=== PATIENT | female | born 1970 | race Caucasian/White ===

== ENCOUNTER 2024-09-28 10:35 | Outpatient (CLI) | payer MEDICARE, OTHER, SELFPAY ==
[2024-09-28 11:00] LABS: Hematocrit 41.3 % (35.0-49.0); Hemoglobin 13.5 g/dL (12.0-15.0); Immature Granulocyte Percent A 0.6 % (0.0-0.0); Lymphocytes Absolute Auto 2.21 K/mm3 (1.10-4.50); Mean Corpuscular HGB Conc 32.7 g/dL (32-36); Mean Corpuscular Hemoglobin 31.3 pg (27.0-31.0); Mean Corpuscular Volume 95.8 fL (78.0-102.0); Nucleated Red Blood Cells Absolute Auto 0.00 K/mm3 (0.00-0.00); Nucleated Red Blood Cells Perc 0.0 % (0-0.0); Platelet Count Result 352 K/mm3 (150-420); Red Blood Count 4.31 M/mm3 (4.20-5.40); White Blood Count 5.4 K/mm3 (4.8-10.8)
--- OUTSIDE RECORDS SUMMARY | 2024-09-28 11:15 | XMS_ITS | Encounter Summary ---
Author Organization [facility] Address [address] [place] [address] Care Team Providers Care Tumbler Operator Name Role Phone Rajeev Warren MD Primary Care Provider [phone] Joseph Wright MD Unavailable [phone] Pauly Perales MD Primary Care Provider [phone] Unavailable Unavaila ble Source Comments You are receiving this document because a patient has been referred to you or your facility after avisit at [facility]. The attached Continuity of Care Document (CCD) was sent in order to comply to federal meaningful use standards. The information has been automatically generated from our EHR ([employer]). If you require additional medical records beyond what is included in this CCD, please contactour Release of Information department at [facility] Reason for Visit * Reason Comments Medication Refill Encounter Details Date Type Department Care Team (Late st Contact Info) Description 10/20/2023 Refill ALLERGY & IMMUNOLOGY DEPARTMENT [address] [place] [address] [phone] Tracey Woo MD [address] [place] [address] Social History Tobacco Use Types Packs/Day Years Used Date Smoking Tobacco: Never Smokeless Tobacco: Never Alcohol Use Standard Drinks/Week Comments No 0 (1 standard drink = 0.6 oz pur e alcohol) Comments Unknown Sex and Gender Information Value Date Recorded Sex Assigned at Female 03/10/2021 5:30 PM PST Legal Sex Female 11:12 PM PDT Gender Identity Female 09/07/2020 4:05 PM PDT Sexual Orientation Not on file 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 Not on file Not on file Not on file documented as of this encounter Plan of Treatment Upcoming Encounters Date Type Department Care Team (Late st Contact Info) Description 10/07/2024 10:30 AM PDT Office Visit [facility]ERGY & IMMUNOLOGY DEPARTMENT [address] [place] [phone] Tracey Woo MD [address] [place] [address] ofv 1y f/u Allergic rhinitis, Shot pt 10/08/2024 8:00 AM PDT Office Visit [facility] [address] [place] [address] Ashkan Padron MD [address] [place] [address] 3 month follow up Sinus 10/11/2024 11:15 AM PDT Clinical Support ALLERGY & IMMUNOLOGY DEPARTMENT [address] [place] [address] Allergy Shot 01/06/2025 8:00 AM PST Office Visit [facility] INTERNAL MEDICINE DEPARTMENT [address] [place] [address] Pauly Perales MD [address] [place] [address] AWV documented as of this encounter Visit Diagnoses Not on filedocumented in this encounter Care Teams Tumbler Operator Relationship Specialty Start Date End Date Rajeev Warren MD [address] [facility] [address] [place] [address] PCP - General 08/28/12 12/31/23 Pauly Perales MD [address] [place] [address] PCP - General Internal Medicine 01/01/24 Joseph Wright MD [address] [place] [address] [phone] General Surgery 03/28/[address] [place] [address] Health Education 03/18/24 documented as of this encounter
--- OUTSIDE RECORDS SUMMARY | 2024-09-28 11:16 | XMS_ITS | Encounter Summary ---
Author Organization [facility] Address [address] [place] [address] Care Team Providers Care Driller Helper Name Role Phone Rajeev Warren MD Primary Care Provider [phone] Joseph Wright MD Unavailable [phone] Pauly Perales MD Primary Care Provider [phone] Unavailable Unavaila ble Source Comments You are receiving this document because a patient has been referred to you or your facility after avisit at [facility]. The attached Continuity of Care Document (CCD) was sent in order to comply to federal meaningful use standards. The information has been automatically generated from our EHR ([employer]). If you require additional medical records beyond what is included in this CCD, please contactour Release of Information department at [facility] Reason for Visit * Reason Comments Medication Refill Encounter Details Date Type Department Care Team (Late st Contact Info) Description 07/23/2023 Refill ALLERGY & IMMUNOLOGY DEPARTMENT [address] [place] [address] [phone] Tracey Woo MD [address] [place] [address] Moderate persistent asthma without complication Social History Tobacco Use Types Packs/Day Years Used Date Smoking Tobacco: Never Smokeless Tobacco: Never Alcohol Use Standard Drinks/Week Comments No 0 (1 standard drink = 0.6 oz pur e alcohol) Comments No Sex and Gender Information Value Date Recorded [...] PDT Office Visit ALLERGY & IMMUNOLOGY DEPARTMENT [address] [place] [address] Tracey Woo MD [address] [place] [address] ofv 1y f/u Allergic rhinitis, Shot pt 10/08/2024 8:00 AM PDT Office Visit [facility] [address] [address] Ashkan Padron MD [address] [place] [address] 3 month follow up Sinus 10/11/2024 11:15 AM PDT Clinical Support ALLERGY & IMMUNOLOGY DEPARTMENT [address] [place] [address] Allergy Shot 01/06/2025 8:00 AM PST Office Visit [facility] INTERNAL MEDICINE DEPARTMENT [address] [place] [address] Pauly Perales MD [address] [place] [address] AWV documented as of this encounter Visit Diagnoses Diagnosis Moderate persistent asthma without complication Unspecified asthma documented in this encounter Care Teams Driller Helper Relationship Specialty Start Date End Date Rajeev Warren MD [address] [facility] [address] [place] [address] PCP - General 08/28/12 12/31/23 Pauly Perales MD [address] [place] [address] PCP - General Internal Medicine 01/01/24 Joseph Wright MD [address] [place] [address] General Surgery 03/28/[address] [place] [address] Health Education 03/18/24 documented as of this encounter
--- OUTSIDE RECORDS SUMMARY | 2024-09-28 11:16 | XMS_ITS | Encounter Summary ---
Author Organization [facility] Address [address] [place] [address] Care Team Providers Care Battery Assembler Plastic Name Role Phone Rajeev Warren MD Primary Care Provider [phone] Joseph Wright MD Unavailable [phone] Pauly Perales MD Primary Care Provider [phone] Unavailable Unavaila ble Source Comments You are receiving this document because a patient has been referred to you or your facility after avisit at [facility]. The attached Continuity of Care Document (CCD) was sent in order to comply to federal meaningful use standards. The information has been automatically generated from our EHR (Prep[employer]). If you require additional medical records beyond what is included in this CCD, please contactour Release of Information department at [facility] Reason for Visit * Reason Comments Medication Refill Encounter Details Date Type Department Care Team (Late st Contact Info) Description 07/22/2023 Refill ALLERGY & IMMUNOLOGY DEPARTMENT [address] [place] [address] [phone] Tracey Woo MD [address] [place] [address] Moderate persistent asthma without complication [...] PDT Office Visit ALLERGY & IMMUNOLOGY DEPARTMENT [address] [place] [address] Tracey Woo MD [address] [place] [address] ofv 1y f/u Allergic rhinitis, Shot pt 10/08/2024 8:00 AM PDT Office Visit [facility] [address] [place] [address] Ashkan Padron MD [address] [place] [address] 3 month follow up Sinus 10/11/2024 11:15 AM PDT Clinical Support ALLERGY & IMMUNOLOGY DEPARTMENT [address] [place] [address] Allergy Shot 01/06/2025 8:00 AM PST Office Visit [facility] INTERNAL MEDICINE DEPARTMENT [address] [place] [address] Pauly Perales MD [address] [place] [address] AWV documented as of this encounter Visit Diagnoses Diagnosis Moderate persistent asthma without complication Unspecified asthma documented in this encounter Care Teams Battery Assembler Plastic Relationship Specialty Start Date End Date Rajeev Warren MD [address] [facility] [address] [place] [address] PCP - General 08/28/12 12/31/23 Pauly Perales MD [address] [place] [address] PCP - General Internal Medicine 01/01/24 Joseph Wright MD [address] [place] [address] General Surgery 03/28/[address] [place] [address] Health Education 03/18/24 documented as of this encounter
--- OUTSIDE RECORDS SUMMARY | 2024-09-28 11:16 | XMS_ITS | Encounter Summary ---
Author Organization [facility] Address [address] [place] [address] Care Team Providers Care Freelance Digital Project Manager Name Role Phone Rajeev Warren MD Primary Care Provider [phone] Joseph Wright MD Unavailable [phone] Pauly Perales MD Primary Care Provider [phone] Unavailable Unavaila ble Source Comments You are receiving this document because a patient has been referred to you or your facility after avisit at [facility]. The attached Continuity of Care Document (CCD) was sent in order to comply to federal meaningful use standards. The information has been automatically generated from our EHR ([email or web address]). If you require additional medical records beyond what is included in this CCD, please contactour Release of Information department at [facility] Reason for Visit * Reason Comments Medication Refill Encounter Details Date Type Department Care Team (Late st Contact Info) Description 07/21/2023 Refill ALLERGY & IMMUNOLOGY DEPARTMENT [address] [place] [address] [phone] Tracey Woo MD [address] [place] [address] Moderate persistent asthma without complication [...] PDT Office Visit ALLERGY & IMMUNOLOGY DEPARTMENT [address] [place] [address] Tracey Woo MD [address] [place] [address] ofv 1y f/u Allergic rhinitis, Shot pt 10/08/2024 8:00 AM PDT Office Visit [facility] [address] [place] [address] Ashkan Padron MD [address] [place] [address] 3 month follow up Sinus 10/11/2024 11:15 AM PDT Clinical Support ALLERGY & IMMUNOLOGY DEPARTMENT [address] [place] [address] Allergy Shot 01/06/2025 8:00 AM PST Office Visit [facility] INTERNAL MEDICINE DEPARTMENT [address] [place] [address] Pauly Perales MD [address] [place] [address] AWV documented as of this encounter Visit Diagnoses Diagnosis Moderate persistent asthma without complication Unspecified asthma documented in this encounter Care Teams Freelance Digital Project Manager Relationship Specialty Start Date End Date Rajeev Warren MD [address] [facility] [address] [place] [address] PCP - General 08/28/12 12/31/23 Pauly Perales MD [address] [place] [address] PCP - General Internal Medicine 01/01/24 Joseph Wright MD [address] [place] [address] General Surgery 03/28/[address] [place] [address] Health Education 03/18/24 documented as of this encounter
--- OUTSIDE RECORDS SUMMARY | 2024-09-28 11:16 | XMS_ITS | Encounter Summary ---
Author Organization [facility] Address [address] [place] [address] Care Team Providers Care Art Glass Setter Name Role Phone Rajeev Warren MD Primary Care Provider [phone] Encounter Details Date Type Department Care Team (Late st Contact Info) Description 01/29/2022 Donor Referral Kidney Transplant Department [address] [place] [address] Joselyn Gipson [address] [place] [address] Social History Tobacco Use Types Packs/Day Years Used Date Smoking Tobacco: Never Assessed Depression Risk (PHQ) Answer Date Recor ded Total Risk Score based on the patient's PHQ-9 if documented Not on file 01/29/2022 Total Risk Score based on th e patient's IP PHQ-2 if documented Not on file 01/29/2022 Total Risk Score based on the patient's PHQ-2 if documented Not on file 01/29/2022 Social Isolation Answer Date Recorded How often do you see or talk to people that you care about and feel close to? Not on file 01/29/2022 Comments Unknown Sex and Gender Information Value Date Recorded Sex Assigned at Not on file Legal Sex Female 10:57 AM PDT Gender Identity Not on file Sexual Orientation Not on file documented as of this encounter Plan of Treatment Not on file documented as of this encounter Visit Diagnoses Not on filedocumented in this encounter Care Teams Art Glass Setter Relationship Specialty Start Date End Date Rajeev Warren MD PCP - General 06/13/14 documented as of this encounter Additional Source Comments Request medical records from [facility] directly by faxing your request to . Please call for additional information and assistance.[facility]
--- OUTSIDE RECORDS SUMMARY | 2024-09-28 11:16 | XMS_ITS | Encounter Summary ---
Author Organization [facility] Address [address] [place] [address] Care Team Providers Care Floral Assistant Name Role Phone Rajeev Warren MD Primary Care Provider [phone] Joseph Wright MD Unavailable [phone] Pauly Perales MD Primary Care Provider [phone] Unavailable Unavaila ble Source Comments You are receiving this document because a patient has been referred to you or your facility after avisit at [facility]. The attached Continuity of Care Document (CCD) was sent in order to comply to federal meaningful use standards. The information has been automatically generated from our EHR ([employer]). If you require additional medical records beyond what is included in this CCD, please contactour Release of Information department at [facility] Reason for Visit * Reason Comments Medication Refill Encounter Details Date Type Department Care Team ([facility] st Contact Info) Description 06/02/2018 Refill [facility] INTERNAL MEDICINE DEPARTMENT [address] [place], [place] [phone] Rajeev Warren MD [address] [address] Social History Tobacco Use Types Packs/Day Years [...] PDT Office Visit ALLERGY & IMMUNOLOGY DEPARTMENT [address] [place] [address] Tracey Woo MD [address] [place] [address] ofv 1y f/u Allergic rhinitis, Shot pt 10/08/2024 8:00 AM PDT Office Visit [facility] [address] [place] [address] Ashkan Padron MD [address] [place] [address] 3 month follow up Sinus 10/11/2024 11:15 AM PDT Clinical Support ALLERGY & IMMUNOLOGY DEPARTMENT [address] [place] [address] Allergy Shot 01/06/2025 8:00 AM PST Office Visit [facility] INTERNAL MEDICINE DEPARTMENT [address] [place] [address] Pauly Perales MD [address] [place] [address] AWV documented as of this encounter Visit Diagnoses Not on filedocumented in this encounter Care Teams Floral Assistant Relationship Specialty Start Date End Date Rajeev Warren MD [address] [facility] [address] [place] [address] PCP - General 08/28/12 12/31/23 Pauly Perales MD [address] [place] [address] PCP - General Internal Medicine 01/01/24 Joseph Wright MD [address] [place] [address] [phone] General Surgery 03/28/[address] [place] [address] Health Education 03/18/24 documented as of this encounter
--- OUTSIDE RECORDS SUMMARY | 2024-09-28 11:16 | XMS_ITS | Encounter Summary ---
Author Organization [facility] Address [address] [place] [address] Phone Care Team Providers Care Carbider Name Role Phone Pauly Perales MD Primary Care Provider [phone] Encounter Details Date Type Department Care Team (Latest Contact Info) Description 12/09/2023 Lab Interfaced Orders LAB INTERFACED ORDERS [phone] Encounter for general adult medical examination without abnormal findings; Hypothyroidism, unspecified; Essential (primary) hypertension Social History Tobacco Use Types Packs/Day Years Used Date Smoking Tobacco: Never Smokeless Tobacco: Never Alcohol Use Standard Drinks/Week Comments No 0 (1 standard drink = 0.6 oz pur e alcohol) [facility] Utilities Answer Date Recorded In the past 12 months has th e electric, gas, oil, or water company threatened to shut off services in your home? No 03/26/2023 PRAPARE - Transportation Answer Date Re corded In the past 12 months, has l ack of transportation kept you from medical appointments or from getting medications? No 02/26 In the past 12 months, has l ack of transportation kept you from meetings, work, or from getting things needed for daily living? No 03/26/2023 Food Insecurity Answer Date Recorded In the last 12 months, did y ou ever eat less than you felt you should because there wasn't enough money for food? No Housing Stability Answer Date Recorded Are you worried that in the next 2 months, you may not have stable housing? No 03/26/2023 Intimate Partner Violence Answer Date R ecorded Do you feel physically and e motionally threatened by anyone in your life? No 03/26/2023 Comments No Sex and Gender Information Value Date Recorded Sex Assigned at Female 04/06/2018 11:07 AM PST Legal Sex Female 8:37 PM PDT Gender Identity Female 04/06/2018 11:07 AM PST Sexual Orientation Straight 03/26/2023 5: 44 PM PST documented as of this encounter Plan of Treatment Not on file documented as of this encounter Results * Thyroid Reflex Panel (12/11/2023 8:54 AM PDT) TSH Ultrasensitive 4.027 0.400 - 4.500 uIU/mL 12/11/2023 12:52 PM PDT [facility] Comment:Reflex testing not i ndicated Blood Venipuncture / Unknown 12/11/2023 8:54 AM PDT 12/11/2023 8:54 AM PDT us Pauly Perales MD LAB BLOOD ORDERABLES Final Res ult Performing Organization Address [facility] Co de Phone Number [facility] [address] [place] [address], * (ABNORMAL) Urinalysis with Microscopic (Reflex Culture If Indicated) (12/11/2023 8:54 AM PDT) Color Yellow Yellow, Dark Yellow, Colorless 12/11/2023 11:44 AM PDT [facility] Clarity Clear Clear 12/11/2023 11:44 AM PDT [facility] Urine Specific [place] 1.012 1.005 - 1.030 12/11/2023 11:44 AM PDT [facility] Urine pH 7.0 5.0 - 8.0 pH 12/11/2023 11:44 AM PDT [facility] Urine Protein Negative Negative, Trace mg/dL 12/11/2023 11:44 AM PDT [facility] Urine Glucose Negative Negative mg/dL 12/11/2023 11:44 AM PDT [facility] Urine Ketones Negative Negative mg/dL 12/11/2023 11:44 AM PDT [facility] Urine Bilirubin Negative Negative 11:44 AM PDT [facility] Urobilinogen 0.2 <=1.0 EU/dl 12/11/2023 11:44 AM PDT [facility] Urine Blood Negative Negative 12/11/2023 11:44 AM PDT [facility] Urine Leukocyte Esterase Negative Negative 12/11/2023 11:44 AM PDT [facility] Urine Nitrite Negative Negative 12/11/2023 11:44 AM PDT [facility] Urine RBC 1-2 <3 /hpf 12/11/2023 11:44 AM PDT [facility] Urine WBC 1-5 <6 /hpf 12/11/2023 11:44 AM PDT [facility] Urine Bacteria 2+(A) None Seen /hpf 12/11/2023 11:44 AM PDT [facility] Urine Squamous Epithelial 1+ (1-3/hpf)(A) None Seen /hpf 12/11/2023 11:44 AM PDT [facility] Hyaline Casts 0-3 <4 /lpf 12/11/2023 11:44 AM PDT [facility] Pathological Casts None Seen None Seen /lpf 12/11/2023 11:44 AM PDT [facility] Crystals None Seen None Seen /hpf 12/11/2023 11:44 AM PDT [facility] Sperm, UA None Seen None Seen, NOT PRESENT, Present /hpf 12/11/2023 11:44 AM PDT [facility] Yeast Like Cells None Seen None Seen, NOT PRESENT /hpf 12/11/2023 11:44 AM PDT [facility] Small Round Cells None Seen None Seen, NOT PRESENT, Present /hpf 12/11/2023 11:44 AM PDT [facility] Culture If Indicated Reflex Urine Culture is Not Indicated 12/11/2023 11:44 AM PDT [facility] Urine Non-blood Collection / Unknown 12/11/2023 8:54 AM PDT 12/11/2023 8:54 AM PDT us Pauly Perales MD LAB URINE ORDERABLES Final Res ult [facility] [address] [place] [address], * (ABNORMAL) Lipid Panel (12/11/2023 8:54 AM PDT) Triglycerides 135 <150 mg/dL 12/11/2023 12:52 PM PDT [facility] Comment: Normal: < 150 mg/dL Borderline high: 150 - 199 mg/dL High: 200 - 499 mg/dL Very High: >= 500 Cholesterol 232(H) <200 mg/dL 12/11/2023 12:52 PM PDT [facility] HDL Cholesterol 55 >40 mg/dL 12:52 PM PDT [facility] Non HDL Cholesterol 177(H) <130 mg/dL 12/11/2023 12:52 PM PDT [facility] LDL Calculated 153(H) <100 mg/dL 12/11/2023 12:52 PM PDT [facility] Comment: Result Interpretation: Desirable...........less than 100 mg/dL Low Risk......................100 - 129 mg/dL Borderline High...............130 - 159 mg/dL High..........................160 - 189 mg/dL Very High.....................190 mg/dL or greater VLDL Cholesterol Calculated 27 5 - 40 mg/dL 12/11/2023 12:52 PM PDT [facility] Comment:As of August 19, 2023, the reference range for VLDL Calculated has been updated to 5 - 40 mg/dL from the previous range of 7 - 35 mg/dL. Chol/HDL Ratio 4.2 <5.0 12/11/2023 12:52 PM PDT [facility] Fasting 8 hours or more? Yes 12/11/2023 12:52 PM PDT [facility] Blood Venipuncture / Unknown 12/11/2023 8:54 AM PDT 12/11/2023 8:54 AM PDT us Pauly Perales MD LAB BLOOD ORDERABLES Final Res ult [facility] [address] [place] [address], * Comprehensive Metabolic Panel (12/11/2023 8:54 AM PDT) [facility] Sodium 139 134 - 145 mmol/L 12/11/2023 12:52 PM PDT [facility] Potassium 4.6 3.5 - 5.1 mmol/L 12/11/2023 12:52 PM PDT [facility] Chloride 107 98 - 110 mmol/L 12/11/2023 12:52 PM PDT [facility] CO2 27 21 - 32 mmol/L 12/11/2023 12:52 PM PDT [facility] Anion Gap 5 3 - 14 mmol/L 12/11/2023 12:52 PM PDT [facility] Blood Urea Nitrogen (BUN) 9 7 - 24 mg/dL 12/11/2023 12:52 PM PDT [facility] Creatinine 0.76 0.55 - 1.02 mg/dL 12/11/2023 12:52 PM PDT [facility] eGFR 89 >60 mL/min/1.7 3m2 12/11/2023 12:52 PM PDT [facility] BUN/Creatinine Ratio 11.8 7.0 - 28.0 12/11/2023 12:52 PM PDT [facility] Calcium 9.2 8.2 - 10.2 mg/dL 12/11/2023 12:52 PM PDT [facility] Total Protein 6.8 6.4 - 8.2 g/dL 12/11/2023 12:52 PM PDT [facility] Albumin 3.7 3.4 - 5.0 g/dL 12/11/2023 12:52 PM PDT [facility] Globulin 3.1 2.0 - 4.1 g/dL 12/11/2023 12:52 PM PDT [facility] Albumin/Globulin Ratio 1.2 0.9 - 1.8 12/11/2023 12:52 PM PDT [facility] Total Bilirubin 0.3 0.2 - 1.2 mg/dL 12/11/2023 12:52 PM PDT [facility] Comment:Use of this assay is not recommended for patients undergoing treatment with Eltrombopag due to the potential for falsely elevated results. AST (SGOT) 14 <39 U/L 12/11/2023 12:52 PM PDT [facility] ALT (SGPT) 22 <56 U/L 12/11/2023 12:52 PM PDT [facility] Alkaline Phosphatase 72 37 - 128 U/L 12/11/2023 12:52 PM PDT [facility] Fasting 8 hours or more? Yes 12/11/2023 12:52 PM PDT [facility] Glucose 87 75 - 99 mg/dL 12/11/2023 12:52 PM PDT [facility] Comment: Normal fasting, 75-99 mg/dL Impaired fasting, 100-125 mg/dL Provisional diabetic, fasting over 125 mg/dL Non fasting, 75-140 mg/dL Blood Venipuncture / Unknown 12/11/2023 8:54 AM PDT 12/11/2023 8:54 AM PDT us Pauly Perales MD LAB BLOOD ORDERABLES Final Res ult [facility] [address] [place] [address], * CBC with Auto Differential (12/11/2023 8:54 AM PDT) WBC 6.2 4.0 - 10.0 10*3/uL 12/11/2023 11:10 AM PDT [facility] RBC 4.28 3.77 - 5.19 10*6/uL 12/11/2023 11:10 AM PDT [facility] Hemoglobin 13.7 11.0 - 15.5 g/dL 12/11/2023 11:10 AM PDT [facility] Hematocrit 41.5 34.9 - 47.0 % 12/11/2023 11:10 AM PDT [facility] MCV 97.0 81.3-101.6 fL fL 12/11/2023 11:10 AM PDT [facility] MCH 32.0 26.0 - 34.0 pg 12/11/2023 11:10 AM PDT [facility] MCHC 33.0 30.0 - 36.0 g/dL 12/11/2023 11:10 AM PDT [facility] RDW-CV 13.2 11.6 - 14.4 % 12/11/2023 11:10 AM PDT [facility] RDW-SD 47.4 35.6 - 48.0 fL 12/11/2023 11:10 AM PDT [facility] Platelet Count 327 150 - 450 10*3/uL 12/11/2023 11:10 AM PDT [facility] MPV 9.4 8.8 - 12.5 fL 12/11/2023 11:10 AM PDT [facility] Neutrophils Relative 42 % 12/11/2023 11:10 AM PDT [facility] Lymphocytes Relative 49 % 12/11/2023 11:10 AM PDT [facility] Monocytes Relative 7 % 12/11/2023 11:10 AM PDT [facility] Eosinophils Relative 1 % 12/11/2023 11:10 AM PDT [facility] Basophils Relative 1 % 12/11/2023 11:10 AM PDT [facility] Immature Granulocytes % 0 % 12/11/2023 11:10 AM PDT [facility] Neutrophils Absolute 2.6 1.7 - 6.4 10*3/uL 12/11/2023 11:10 AM PDT [facility] Lymphocytes Absolute 3.0 1.0 - 3.5 10*3/uL 12/11/2023 11:10 AM PDT [facility] Monocytes Absolute 0.4 0.1 - 0.8 10*3/uL 12/11/2023 11:10 AM PDT [facility] Eosinophils Absolute 0.1 0.0 - 0.4 10*3/uL 12/11/2023 11:10 AM PDT [facility] Basophils Absolute 0.0 0.0 - 0.2 10*3/uL 12/11/2023 11:10 AM PDT [facility] Absolute Immature Granulocytes 0.0 0.0 - 0.2 10*3/uL 12/11/2023 11:10 AM PDT [facility] Nucleated RBCS 0.0 <1.0 /100 WBCs 12/11/2023 11:10 AM PDT [facility] Blood Venipuncture / Unknown 12/11/2023 8:54 AM PDT 12/11/2023 8:54 AM PDT us Pauly Perales MD LAB BLOOD ORDERABLES Final Res ult [facility] [address] [place] [address], documented in this encounter Visit Diagnoses Diagnosis Encounter for general adult medical examination without abnormal findings Hypothyroidism, unspecified Essential (primary) hypertension Unspecified essential hypertension documented in this encounter Care Teams Carbider Relationship Specialty Start Date End Date Pauly Perales MD [address] [place] [address] PCP - General Internal Medicine 05/25/24 documented as of this encounter
--- OUTSIDE RECORDS SUMMARY | 2024-09-28 11:16 | XMS_ITS | Clinical Summary ---
Author Organization [facility] Address [address] [place] [id number] Care Team Providers Care Disk Operator Name Role Phone Rajeev Warren MD Primary Care Provider [phone] Source Comments IMPORTANT WARNING: This document is intended for the use of the person orentity to which it is addressed and may contain information that is privilegedand confidential, the disclosure of which is governed by applicable law. If youare not the intended recipient, or the employee or agent responsible to deliverit to the intended recipient, you are notified that any dissemination,distribution or copying of this information is STRICTLY PROHIBITED. If you havereceived this communication in error, please immediately notify us by telephoneat [phone] and return this original message or destroy it.[facility] Social History Tobacco Use Types Packs/Day Years [...] on file Sexual Orientation Not on file Plan of Treatment Health Maintenance Due Date Last Done Comments COVID-19 Vaccine(Tracks prim angi and booster doses, not sup/immunocomp) (2023- season) 2023 Insurance MEDICARE MEDICARE * Guarantor: [facility],CORPORATE BILLING FOR Account Type Relation to Patient Date of Phone Billing Address Corporate Other [address] [address] [place] [address] Care Teams Disk Operator Relationship Specialty Start Date End Date Rajeev Warren MD PCP - General 06/13/14 Additional Source Comments Request medical records from [facility] directly by faxing your request to . Please call for additional information and assistance.[facility] [employer] [facility]
--- OUTSIDE RECORDS SUMMARY | 2024-09-28 11:16 | XMS_ITS | Encounter Summary ---
Author Organization [facility] Address [address] [place] [address] Care Team Providers Care Piano Stringer Name Role Phone Rajeev Warren MD Primary Care Provider [phone] Joseph Wright MD Unavailable [phone] Pauly Perales MD Primary Care Provider [phone] Unavailable Unavaila ble Source Comments You are receiving this document because a patient has been referred to you or your facility after avisit at [facility]. The attached Continuity of Care Document (CCD) was sent in order to comply to federal meaningful use standards. The information has been automatically generated from our EHR ([employer]). If you require additional medical records beyond what is included in this CCD, please contactour Release of Information department at [facility] Reason for Visit * Reason Comments Medication Refill Encounter Details Date Type Department Care Team (Late st Contact Info) Description 11/11/2023 Refill ALLERGY & IMMUNOLOGY DEPARTMENT [address] [place] [address] [phone] Tracey Woo MD [address] [place] [address] Social History Tobacco Use Types [...] PDT Office Visit [facility]ERGY & IMMUNOLOGY DEPARTMENT [address] [place] [address] Tracey Woo MD [address] [place] [address] ofv 1y f/u Allergic rhinitis, Shot pt 10/08/2024 8:00 AM PDT Office Visit [facility] [address] [address] Ashkan Padron MD [address] [place] [address] 3 month follow up Sinus 10/11/2024 11:15 AM PDT Clinical Support ALLERGY & IMMUNOLOGY DEPARTMENT [address] [place] [address] Allergy Shot 01/06/2025 8:00 AM PST Office Visit [facility] INTERNAL MEDICINE DEPARTMENT [address] [place] [address] Pauly Perales MD [address] [place] [address] AWV documented as of this encounter Visit Diagnoses Not on filedocumented in this encounter Care Teams Piano Stringer Relationship Specialty Start Date End Date Rajeev Warren MD [address] [facility] [address] [place] [address] PCP - General 08/28/12 12/31/23 Pauly Perales MD [address] [place] [address] PCP - General Internal Medicine 01/01/24 Joseph Wright MD [address] [place] [address] [phone] General Surgery 03/28/[address] [place] [address] Health Education 03/18/24 documented as of this encounter
--- OUTSIDE RECORDS SUMMARY | 2024-09-28 11:16 | XMS_ITS | Encounter Summary ---
Author Organization [facility] Address [address] [place] [address] Care Team Providers Care Security Vehicle Patrol Officer Name Role Phone Rajeev Warren MD Primary Care Provider [phone] Joseph Wright MD Unavailable [phone] Pauly Perales MD Primary Care Provider [phone] Unavailable Unavaila ble Source Comments You are receiving this document because a patient has been referred to you or your facility after avisit at [facility]. The attached Continuity of Care Document (CCD) was sent in order to comply to federal meaningful use standards. The information has been automatically generated from our EHR ([employer]). If you require additional medical records beyond what is included in this CCD, please contactour Release of Information department at [facility] Reason for Visit * Reason Comments Fyi Appointment Encounter Details Date Type Department Care Team (Late st Contact Info) Description 05/15/2020 Telephone ALLERGY & IMMUNOLOGY DEPARTMENT [address] [place] [address] Tracey Woo MD [address] [place] [address] Fyi; Appointment Social History Tobacco Use Types Packs/Day Years [...] on file documented as of this encounter Miscellaneous Notes * Telephone Encounter - Marquita Bowman - 05/15/2020 11:14 AM PDT Pt was instructed in her telemed w/ Dr. Woo (05/11/20) to come in and watch a video and sign consent on starting allergy shots. Other than the visit is a nurse visit, there is no instruction on how to schedule these appts. Please call Pt back at: [phone] documented in this encounter Plan of Treatment Upcoming Encounters Date Type Department Care Team (Late st Contact Info) Description 10/07/2024 10:30 AM PDT Office Visit [facility]ERGY & IMMUNOLOGY DEPARTMENT [address] [place] [address] Tracey Woo MD [address] [place] [address] ofv 1y f/u Allergic rhinitis, Shot pt 10/08/2024 8:00 AM PDT Office Visit [facility] [address] [place] [phone] Ashkan Padron MD [address] [place] [address] 3 month follow up Sinus 10/11/2024 11:15 AM PDT Clinical Support ALLERGY & IMMUNOLOGY DEPARTMENT [address] [place] [address] Allergy Shot 01/06/2025 8:00 AM PST Office Visit [facility] INTERNAL MEDICINE DEPARTMENT [address] [place] [address] Pauly Perales MD [address] [place] [address] AWV documented as of this encounter Visit Diagnoses Not on filedocumented in this encounter Care Teams Security Vehicle Patrol Officer Relationship Specialty Start Date End Date Rajeev Warren MD [facility] [address] [address] PCP - General 08/28/12 12/31/23 Pauly Perales MD [address] [place] [address] PCP - General Internal Medicine 01/01/24 Joseph Wright MD [address] [place] [address] General Surgery 03/28/[address] [place] [address] Health Education 03/18/24 documented as of this encounter
--- OUTSIDE RECORDS SUMMARY | 2024-09-28 11:16 | XMS_ITS | Encounter Summary ---
Author Organization [facility] Address [address] [place] [address] Care Team Providers Care Foster Care Worker Name Role Phone Rajeev Warren MD Primary Care Provider [phone] Joseph Wright MD Unavailable [phone] Pauly Pearles MD Primary Care Provider [phone] Unavailable Unavaila ble Source Comments You are receiving this document because a patient has been referred to you or your facility after avisit at [facility]. The attached Continuity of Care Document (CCD) was sent in order to comply to federal meaningful use standards. The information has been automatically generated from our EHR ([employer]). If you require additional medical records beyond what is included in this CCD, please contactour Release of Information department at [facility] Reason for Visit * Reason Comments Medication Refill Encounter Details Date Type Department Care Team ([facility] st Contact Info) Description 05/30/2018 Refill [facility] INTERNAL MEDICINE DEPARTMENT [address] [place], [place] [phone] Rajeev Warren MD [address] [address] Social History Tobacco Use Types [...] PDT Office Visit ALLERGY & IMMUNOLOGY DEPARTMENT [address] [place] [address] Tracey Woo MD [address] [place] [address] ofv 1y f/u Allergic rhinitis, Shot pt 10/08/2024 8:00 AM PDT Office Visit [facility] [address] [address] Ashkan Padron MD [address] [place] [address] 3 month follow up Sinus 10/11/2024 11:15 AM PDT Clinical Support ALLERGY & IMMUNOLOGY DEPARTMENT [address] [place] [address] Allergy Shot 01/06/2025 8:00 AM PST Office Visit [facility] INTERNAL MEDICINE DEPARTMENT [address] [place] [address] Pauly Perales MD [address] [place] [address] AWV documented as of this encounter Visit Diagnoses Not on filedocumented in this encounter Care Teams Foster Care Worker Relationship Specialty Start Date End Date Rajeev Warren MD [address] [facility] [address]ND [place] [address] PCP - General 08/28/12 12/31/23 Pauly Perales MD [address] [place] [address] PCP - General Internal Medicine 01/01/24 Joseph Wright MD [address] [place] [address] [phone] General Surgery 03/28/[address] [place] [address] Health Education 03/18/24 documented as of this encounter
--- OUTSIDE RECORDS SUMMARY | 2024-09-28 11:16 | XMS_ITS | Encounter Summary ---
Author Organization [facility] Address [address] [place] [address] Care Team Providers Care Crawler Tractor Operator Name Role Phone Rajeev Warren MD Primary Care Provider [phone] Joseph Wright MD Unavailable [phone] Pauly Perales MD Primary Care Provider [phone] Unavailable Unavaila ble Source Comments You are receiving this document because a patient has been referred to you or your facility after avisit at [facility]. The attached Continuity of Care Document (CCD) was sent in order to comply to federal meaningful use standards. The information has been automatically generated from our EHR ([email or web address]). If you require additional medical records beyond what is included in this CCD, please contactour Release of Information department at [facility] Reason for Visit * Reason Comments Medication Refill Encounter Details Date Type Department Care Team (Late st Contact Info) Description 10/30/2023 Refill ALLERGY & IMMUNOLOGY DEPARTMENT [address] [place] [phone] Tracey Woo MD [address] [place] [address] Social History Tobacco Use Types [...] PDT Office Visit ALLERGY & IMMUNOLOGY DEPARTMENT [address] [place] [address] Tracey Woo MD [address] [place] [address] ofv 1y f/u Allergic rhinitis, Shot pt 10/08/2024 8:00 AM PDT Office Visit [facility] [address] [place] [address] Ashkan Padron MD [address] [place] [address] 3 month follow up Sinus 10/11/2024 11:15 AM PDT Clinical Support ALLERGY & IMMUNOLOGY DEPARTMENT [address] [place] [address] Allergy Shot 01/06/2025 8:00 AM PST Office Visit [facility] INTER[facility] [address] [place] [address] Pauly Perales MD [address] [place] [address] AWV documented as of this encounter Visit Diagnoses Not on filedocumented in this encounter Care Teams Crawler Tractor Operator Relationship Specialty Start Date End Date Rajeev Warren MD [address] [facility] [address]ND [place] [address] PCP - General 08/28/12 12/31/23 Pauly Perales MD [address] [place] [address] PCP - General Internal Medicine 01/01/24 Joseph Wright MD [address] [place] [address] [phone] General Surgery 03/28/[address] [place] [address] Health Education 03/18/24 documented as of this encounter
--- OUTSIDE RECORDS SUMMARY | 2024-09-28 11:16 | XMS_ITS | Encounter Summary ---
Author Organization [facility] Address [address] [place] [address] Care Team Providers Care Crystal Lapper Name Role Phone Joseph Wright MD Unavailable [phone] Pauly Perales MD Primary Care Provider Lisette Dockery RD Unavailable Unavaila ble Source Comments You are receiving this document because a patient has been referred to you or your facility after avisit at [facility]. The attached Continuity of Care Document (CCD) was sent in order to comply to federal meaningful use standards. The information has been automatically generated from our EHR ([employer]). 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 on file Not on file documented as of this encounter Plan of Treatment Upcoming Encounters Date Type Department Care Team (Late st Contact Info) Description 10/07/2024 10:30 AM PDT Office Visit [facility] IMM[facility]OLOGY DEPARTMENT [address] [place] [address] Tracey Woo MD [address] [place] [address] ofv 1y f/u Allergic rhinitis, Shot pt 10/08/2024 8:00 AM PDT Office Visit [facility] [address] [place] [address] Ashkan Padron MD [address] [place] [address] 3 month follow up Sinus 10/11/2024 11:15 AM PDT Clinical Support [facility]ERGY & IMMUNOLOGY DEPARTMENT [address] [place] [address] Allergy Shot 01/06/2025 8:00 AM PST Office Visit [facility] INTERNAL MEDICINE DEPARTMENT [address] [place] [address] Pauly Perales MD [address] [place] [address] AWV documented as of this encounter Visit Diagnoses Not on filedocumented in this encounter Care Teams Crystal Lapper Relationship Specialty Start Date End Date Pauly Perales MD [address] [place] [address] PCP - General Internal Medicine 01/01/24 Joseph Wright MD [address] [place] [address] General Surgery 03/28/[address] [place] [address] Health Education 03/18/24 documented as of this encounter
--- OUTSIDE RECORDS SUMMARY | 2024-09-28 11:16 | XMS_ITS | Encounter Summary ---
Author Organization [facility] Address [address] [place] [address] Care Team Providers Care Clarification Operator Name Role Phone Rajeev Warren MD Primary Care Provider [phone] Joseph Wright MD Unavailable [phone] Pauly Perales MD Primary Care Provider [phone] Unavailable Unavaila ble Source Comments You are receiving this document because a patient has been referred to you or your facility after avisit at [facility]. The attached Continuity of Care Document (CCD) was sent in order to comply to federal meaningful use standards. The information has been automatically generated from our EHR ([employer]). If you require additional medical records beyond what is included in this CCD, please contactour Release of Information department at [facility] Reason for Visit * Reason Comments Medication Refill Encounter Details Date Type Department Care Team ([facility] st Contact Info) Description 05/03/2020 Refill [facility] INTERNAL MEDICINE DEPARTMENT [address] [place], [place] [phone] Rajeev Warren MD [address] [address] Social History Tobacco Use Types [...] PDT Office Visit [facility]GY & IMMUNOLOGY DEPARTMENT [address] [place] [address] Tracey Woo MD [address] [place] [address] ofv 1y f/u Allergic rhinitis, Shot pt 10/08/2024 8:00 AM PDT Office Visit [facility] [address] [facility] [address] [place] [address] Ashkan Padron MD [address] [facility] [address] [place] [address] 3 month follow up Sinus 10/11/2024 11:15 AM PDT Clinical Support [facility]GY & IMMUNOLOGY DEPARTMENT [address] [place] [address] Allergy Shot 01/06/2025 8:00 AM PST Office Visit [facility] INTERNAL MEDICINE DEPARTMENT [address] [place] [address] Pauly Perales MD 215 [place] [address] AWV documented as of this encounter Visit Diagnoses Not on filedocumented in this encounter Care Teams Clarification Operator Relationship Specialty Start Date End Date Rajeev Warren MD [address] [facility] [address] [place] [address] PCP - General 08/28/12 12/31/23 Pauly Perales MD [address] [place] [address] PCP - General Internal Medicine 01/01/24 Joseph Wright MD [address] [place] [address] [id number] General Surgery 03/28/[address] [place] [address] Health Education 03/18/24 documented as of this encounter
--- OUTSIDE RECORDS SUMMARY | 2024-09-28 11:16 | XMS_ITS | Encounter Summary ---
Author Organization [facility] Address [address] [place] [address] Care Team Providers Care Furniture Rental Consultant Name Role Phone Rajeev Warren MD Primary Care Provider [phone] Joseph Wright MD Unavailable [phone] Pauly Perales MD Primary Care Provider [phone] Unavailable Unavaila ble Source Comments You are receiving this document because a patient has been referred to you or your facility after avisit at [facility]. The attached Continuity of Care Document (CCD) was sent in order to comply to federal meaningful use standards. The information has been automatically generated from our EHR ([employer]). If you require additional medical records beyond what is included in this CCD, please contactour Release of Information department at [facility] Reason for Visit * Reason Comments Medication Refill Encounter Details Date Type Department Care Team (Late st Contact Info) Description 12/06/2023 Refill [facility]GY [facility] IMMUNOLOGY DEPARTMENT [address] [place] [address] [phone] Tracey Woo MD 51 [place] [address] Social History Tobacco Use Types [...] Office Visit [facility] IMMUNOLOGY DEPARTMENT [address] [place] [address] Tracey Woo MD [address] [place] [address] ofv 1y f/u Allergic rhinitis, Shot pt 10/08/2024 8:00 AM PDT Office Visit [facility] [address] [place] [address] Ashkan Padron MD [address] [place] [address] 3 month follow up Sinus 10/11/2024 11:15 AM PDT Clinical Support [facility]ERGY & IMMUNOLOGY DEPARTMENT [address] [place] [address] Allergy Shot 01/06/2025 8:00 AM PST Office Visit [facility] INTERNAL MEDICINE DEPARTMENT 215 [place] [address] Pauly Perales MD 215 [place] [address] AWV documented as of this encounter Visit Diagnoses Not on filedocumented in this encounter Care Teams Furniture Rental Consultant Relationship Specialty Start Date End Date Rajeev Warren MD 1532 [facility] 2[address] [place] [address] PCP - General 08/28/12 12/31/23 Pauly Perales MD [address] [place] [address] PCP - General Internal Medicine 01/01/24 Joseph Wright MD [address] [place] [address] [phone] General Surgery 03/28/[address] [place] [address] Health Education 03/18/24 documented as of this encounter
--- OUTSIDE RECORDS SUMMARY | 2024-09-28 11:16 | XMS_ITS | Encounter Summary ---
Author Organization [facility] Address [address] [place] [address] Care Team Providers Care Test Cell Technician Name Role Phone Rajeev Warren MD Primary Care Provider [phone] Joseph Wright MD Unavailable [phone] Pauly Perales MD Primary Care Provider [phone] Unavailable Unavaila ble Source Comments You are receiving this document because a patient has been referred to you or your facility after avisit at [facility]. The attached Continuity of Care Document (CCD) was sent in order to comply to federal meaningful use standards. The information has been automatically generated from our EHR ([employer]). If you require additional medical records beyond what is included in this CCD, please contactour Release of Information department at [facility] Reason for Visit * Reason Comments Medication Refill Encounter Details Date Type Department Care Team ([facility] st Contact Info) Description 05/28/2018 Refill [facility] INTERNAL MEDICINE DEPARTMENT [address] [place], [place] [phone] Rajeev Warren MD [address] [address] Social History Tobacco Use Types [...] PDT Office Visit ALLERGY & IMMUNOLOGY DEPARTMENT [address] [place] [address] Tracey Woo MD [address] [place] [address] ofv 1y f/u Allergic rhinitis, Shot pt 10/08/2024 8:00 AM PDT Office Visit [facility] [address] [place] [address] Ashkan Padron MD [address] [facility] [address] [place] [address] 3 month follow up Sinus 10/11/2024 11:15 AM PDT Clinical Support ALLERGY & IMMUNOLOGY DEPARTMENT [address] [place] [address] Allergy Shot 01/06/2025 8:00 AM PST Office Visit [facility] INTERNAL MEDICINE DEPARTMENT 215 [place] [address] Pauly Perales MD 215 [place] [address] AWV documented as of this encounter Visit Diagnoses Not on filedocumented in this encounter Care Teams Test Cell Technician Relationship Specialty Start Date End Date Rajeev Warren MD 1532 [facility] 2ND [place] [address] PCP - General 08/28/12 12/31/23 Pauly Perales MD [address] [place] [address] PCP - General Internal Medicine 01/01/24 Joseph Wright MD [address] [place] [address] [phone] General Surgery 03/28/[address] [place] [address] Health Education 03/18/24 documented as of this encounter
--- OUTSIDE RECORDS SUMMARY | 2024-09-28 11:16 | XMS_ITS | Encounter Summary ---
Author Organization [facility] Address [address] [place] [place] [address] Care Team Providers Care Manager Infusion Name Role Phone Rajeev Warren MD Primary Care Provider [phone] Joseph Wright MD Unavailable [phone] Pauly Perales MD Primary Care Provider [phone] Unavailable Unavaila ble Source Comments You are receiving this document because a patient has been referred to you or your facility after avisit at [facility]. The attached Continuity of Care Document (CCD) was sent in order to comply to federal meaningful use standards. The information has been automatically generated from our EHR ([employer]). If you require additional medical records beyond what is included in this CCD, please contactour Release of Information department at [facility] Reason for Visit * Reason Comments Medication Refill Encounter Details Date Type Department Care Team ([facility] st Contact Info) Description 08/21/2020 Refill [facility] INTERNAL MEDICINE DEPARTMENT [address] [place], [place] [phone] Rajeev Warren MD [address] [phone] Acquired hypothyroidism Social History Tobacco Use Types Packs/Day Years [...] encounter Miscellaneous Notes * Telephone Encounter - Mari Lynn MA - 08/21/2020 5:56 PM PDT LAST ENDO VISIT 07/201803/15/19 CANCELLED NO F/U SCHEDULED ROUTING TO PCP DR ROBERTSON documented in this encounter Plan of Treatment Upcoming Encounters Date Type Department Care Team (Late st Contact Info) Description 10/07/2024 10:30 AM PDT Office Visit ALLERGY & IMMUNOLOGY DEPARTMENT [address] [place] [address] Tracey Woo MD 51 [place] [address] ofv 1y f/u Allergic rhinitis, Shot pt 10/08/2024 8:00 AM PDT Office Visit [facility] [address] [place] [address] Ashkan Padron MD [address] [place] [address] 3 month follow up Sinus 10/11/2024 11:15 AM PDT Clinical Support ALLERGY & IMMUNOLOGY DEPARTMENT [address] [place] [address] Allergy Shot 01/06/2025 8:00 AM PST Office Visit [facility] INTERNAL MEDICINE DEPARTMENT [address] [place] [address] Pauly Perales MD 215 [place] [address] AWV documented as of this encounter Visit Diagnoses Diagnosis Acquired hypothyroidism documented in this encounter Care Teams Manager Infusion Relationship Specialty Start Date End Date Rajeev Warren MD [address] [address] PCP - General 08/28/12 12/31/23 Pauly Perales MD [address] [place] [address] PCP - General Internal Medicine 01/01/24 Joseph Wright MD [address] [place] [address] General Surgery 03/28/[address] [place] [address] Health Education 03/18/24 documented as of this encounter
--- OUTSIDE RECORDS SUMMARY | 2024-09-28 11:16 | XMS_ITS | Encounter Summary ---
Author Organization [facility] Address [address] [place] [address] Care Team Providers Care Mail Delivery Supervisor Name Role Phone Rajeev Warren MD Primary Care Provider [phone] Joseph Wright MD Unavailable [phone] Pauly Perales MD Primary Care Provider [phone] Unavailable Unavaila ble Source Comments You are receiving this document because a patient has been referred to you or your facility after avisit at [facility]. The attached Continuity of Care Document (CCD) was sent in order to comply to federal meaningful use standards. The information has been automatically generated from our EHR ([employer]). If you require additional medical records beyond what is included in this CCD, please contactour Release of Information department at [facility] Reason for Visit * Reason Comments Bartholin's Cyst Encounter Details Date Type Department Care Team (Late st Contact Info) Description 08/07/2020 Telephone [facility] [address] [place] [address] Mara Albrecht MD [address] [phone] Bartholin's Cyst Social History Tobacco Use Types Packs/Day Years [...] encounter Miscellaneous Notes * Telephone Encounter - Faviola Mora RN - 08/17/2020 4:38 PM PDT 08-17-20 TCLM for pt to call back if still having issues and needs to set up an appointment. * Telephone Encounter - Karina Ruby RN - 08/07/2020 1:08 PM PDT See MyChart form 08/03 - pt was instructed to go to Urgent care for eval of fevers and piper cyst. Pt had also had recent GI upset. Per [facility] policy cannot be seen in office until 10 days post symptoms. TCLM to [employer] [facility] pt reviewed info above. Did pt go to Urgent care for COVID testing? Reviewed OTC treatment for piper cyst. Encouraged to go to urgent care for eval, otherwise can schedule her with provider after 10 days of last symptom (of GI upset or fever), call back number given. * Telephone Encounter - Lisette Arreaga - 08/07/2020 10:11 AM PDT Pt of cdv Is requesting a consult with cdv for piper cyst, Pt is scheduled to see cdv in nov but if she can get in sooner. Pt drained it herself Please advise .PT AUTHORIZES LEAVING A DETAILED MESSAGE AT [phone] documented in this encounter Plan of Treatment Upcoming Encounters Date Type Department Care Team (Late st Contact Info) Description 10/07/2024 10:30 AM PDT Office Visit ALLERGY & IMMUNOLOGY DEPARTMENT [address] [place] [address] Tracey Woo MD [address] [place] [address] ofv 1y f/u Allergic rhinitis, Shot pt 10/08/2024 8:00 AM PDT Office Visit [facility] OT[facility]MENT [address] [place] [address] Ashkan Padron MD [address] [place] [address] 3 month follow up Sinus 10/11/2024 11:15 AM PDT Clinical Support ALLERGY & IMMUNOLOGY DEPARTMENT [address] [place] [address] Allergy Shot 01/06/2025 8:00 AM PST Office Visit [facility] INTERNAL MEDICINE DEPARTMENT [address] [place] [address] Pauly Perales MD [address] [place] [address] AWV documented as of this encounter Visit Diagnoses Not on filedocumented in this encounter Care Teams Mail Delivery Supervisor Relationship Specialty Start Date End Date Rajeev Warren MD 1532 [facility] [address] [place] [address] PCP - General 08/28/12 12/31/23 Pauly Perales MD 215 [place] [address] PCP - General Internal Medicine 01/01/24 Joseph Wright MD [address] [place] [address] [phone] General Surgery 03/28/[address] [place] [address] Health Education 03/18/24 documented as of this encounter
--- OUTSIDE RECORDS SUMMARY | 2024-09-28 11:16 | XMS_ITS | Encounter Summary ---
Author Organization [facility] Address [address] [place] [address] Care Team Providers Care Caustic Preparer Name Role Phone Rajeev Warren MD Primary Care Provider [phone] Joseph Wright MD Unavailable [phone] Pauly Perales MD Primary Care Provider [phone] Unavailable Unavaila ble Source Comments You are receiving this document because a patient has been referred to you or your facility after avisit at [facility]. The attached Continuity of Care Document (CCD) was sent in order to comply to federal meaningful use standards. The information has been automatically generated from our EHR ([employer]). If you require additional medical records beyond what is included in this CCD, please contactour Release of Information department at [facility] Reason for Visit * Reason Comments Medication Refill Encounter Details Date Type Department Care Team ([facility] st Contact Info) Description 11/21/2019 Refill [facility] INTERNAL MEDICINE DEPARTMENT [address] [place], [place] [phone] Rajeev Warren MD [address] [phone] Herpes labialis Social History Tobacco Use Types Packs/Day Years [...] PDT Office Visit [facility]ERGY & IMMUNOLOGY DEPARTMENT [address] [place] [address] Tracey Woo MD 51 [place] [address] ofv 1y f/u Allergic rhinitis, Shot pt 10/08/2024 8:00 AM PDT Office Visit [facility] [address] [place] [address] Ashkan Padron MD [address] [place] [address] 3 month follow up Sinus 10/11/2024 11:15 AM PDT Clinical Support ALLERGY & IMMUNOLOGY DEPARTMENT [address] [place] [address] Allergy Shot 01/06/2025 8:00 AM PST Office Visit [facility] INTERNAL MEDICINE DEPARTMENT [address] [place] [address] Pauly Perales MD 215 [place] [address] AWV documented as of this encounter Visit Diagnoses Diagnosis Herpes labialis Herpes 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
--- OUTSIDE RECORDS SUMMARY | 2024-09-28 11:16 | XMS_ITS | Encounter Summary ---
Author Organization [facility] Address [address] [place] [address] Care Team Providers Care Residential Director Name Role Phone Rajeev Warren MD Primary Care Provider [phone] Joseph Wright MD Unavailable [phone] Pauly Perales MD Primary Care Provider [phone] Unavailable Unavaila ble Source Comments You are receiving this document because a patient has been referred to you or your facility after avisit at [facility]. The attached Continuity of Care Document (CCD) was sent in order to comply to federal meaningful use standards. The information has been automatically generated from our EHR ([employer]). If you require additional medical records beyond what is included in this CCD, please contactour Release of Information department at [facility] Reason for Visit * Reason Comments Medication Refill Encounter Details Date Type Department Care Team (Late st Contact Info) Description 03/08/2023 Refill [facility] INTERNAL MEDICINE DEPARTMENT [address] [place] [address] Rosalind Norton MD [address] [place], [place] [phone] Social History Tobacco Use Types Packs/Day Years [...] PDT Office Visit [facility]ERGY & IMMUNOLOGY DEPARTMENT [address] [place] [address] Tracey Woo MD [address] [place] [address] ofv 1y f/u Allergic rhinitis, Shot pt 10/08/2024 8:00 AM PDT Office Visit [facility] [address] [facility] [place] [address] Ashkan Padron MD [address] [facility] [place] [address] 3 month follow up Sinus 10/11/2024 11:15 AM PDT Clinical Support ALLERGY & IMMUNOLOGY DEPARTMENT [address] [place] [address] Allergy Shot 01/06/2025 8:00 AM PST Office Visit [facility] INTERNAL MEDICINE DEPARTMENT [address] [place] [address] Pauly Perales MD [address] [place] [address] AWV documented as of this encounter Visit Diagnoses Not on filedocumented in this encounter Care Teams Residential Director Relationship Specialty Start Date End Date Rajeev Warren MD 15[address] [facility] 2ND [place] [address] PCP - General 08/28/12 12/31/23 Pauly Perales MD [address] [place] [address] PCP - General Internal Medicine 01/01/24 Joseph Wright MD [address] [place] [address] [phone] General Surgery 03/28/[address] [place] [address] Health Education 03/18/24 documented as of this encounter
--- OUTSIDE RECORDS SUMMARY | 2024-09-28 11:16 | XMS_ITS | Clinical Summary ---
Author Organization [facility] Address [address] [place] [address] Phone Care Team Providers Care Life Skills Specialist Name Role Phone Unavailable Primary Care Provider Unavailabl e Source Comments The [employer] EMR is fully implemented at [facility] across theentire continuum of care.[facility] Social History Tobacco Use Types Packs/Day Years Used Date Smoking Tobacco: Never Assessed Comments Unknown Sex and Gender Information Value Date Recorded Sex Assigned at Not on file Legal Sex Female 4:34 PM PDT Gender Identity Not on file Sexual Orientation Not on file Plan of Treatment Health Maintenance Due Date Last Done Comments CRC Screening 1969 CT Colonography Test 1969 Cologuard 1969 Colonoscopy 1969 FIT Test 1969 Flexible Sigmoidoscopy 1969 Hep C Screening 1969 Depression Assessment (PHQ 2-9 / PHQ A / EPDS) 982 DTaP,Tdap,and Td Vaccines (1 - Tdap) 1988 Cervical Cancer Screening 1990 HPV or Cotesting 1990 Pap Smear 1990 Mammography 12/06/1999 Pneumococcal 50+ (1 of 1 - PCV) 12/06/2019 Zoster Vaccine (1 of 2) 12/06/2019 COVID-19 Vaccination (SARS-CoV-2) ( - 2023- season) 2023 Influenza Vaccine (#1) 2024 RSV Obstetrics & Adults (1 - 1-dose 75+ series) 2044
--- OUTSIDE RECORDS SUMMARY | 2024-09-28 11:16 | XMS_ITS | Encounter Summary ---
Author Organization [facility] Address [address] [place] [address] Care Team Providers Care Paper Twister Name Role Phone Rajeev Warren MD Primary Care Provider [phone] Joseph Wright MD Unavailable [phone] Pauly Perales MD Primary Care Provider [phone] Unavailable Unavaila ble Source Comments You are receiving this document because a patient has been referred to you or your facility after avisit at [facility]. The attached Continuity of Care Document (CCD) was sent in order to comply to federal meaningful use standards. The information has been automatically generated from our EHR ([employer]). If you require additional medical records beyond what is included in this CCD, please contactour Release of Information department at [facility] Reason for Visit * Reason Comments Medication Management Appointment Encounter Details Date Type Department Care Team ([facility] st Contact Info) Description 03/10/2023 Telephone Non [facility] Department [address] [address] DEPT [address] [place] [address] Rajeev Warren MD [address] [address] Medication Management; Appointment Social History Tobacco Use Types Packs/Day [...] encounter Miscellaneous Notes * Telephone Encounter - Justine Romano - 03/10/2023 11:13 AM PST Found sooner apt with for pt to EST care 03/26. Pt will wait until apt scheduled to discussmedications. * Telephone Encounter - Yasmin Robertson - 03/10/2023 10:57 AM PST Patient is requesting a medication management appointment to go over current medication. Please advice. [phone] documented in this encounter Plan of Treatment Upcoming Encounters Date Type Department Care Team (Late st Contact Info) Description 10/07/2024 10:30 AM PDT Office Visit [facility]ERGY & IMMUNOLOGY DEPARTMENT [address] [place] [address] Tracey Woo MD [address] [place] [address] ofv 1y f/u Allergic rhinitis, Shot pt 10/08/2024 8:00 AM PDT Office Visit [facility] [address] [facility] [place] [address] Ashkan Padron MD [address] [facility] [place] [phone] 3 month follow up Sinus 10/11/2024 11:15 AM PDT Clinical Support ALLERGY & IMMUNOLOGY DEPARTMENT [address] [place] [address] Allergy Shot 01/06/2025 8:00 AM PST Office Visit [facility] INTERNAL MEDICINE DEPARTMENT [address] [place] [address] Pauly Perales MD [address] [place] [address] AWV documented as of this encounter Visit Diagnoses Not on filedocumented in this encounter Care Teams Paper Twister Relationship Specialty Start Date End Date Rajeev Warren MD [facility] [address] [address] PCP - General 08/28/12 12/31/23 Pauly Perales MD [address] [place] [address] PCP - General Internal Medicine 01/01/24 Joseph Wright MD [address] [place] [address] General Surgery 03/28/[address] [place] [address] Health Education 03/18/24 documented as of this encounter
--- OUTSIDE RECORDS SUMMARY | 2024-09-28 11:16 | XMS_ITS | Encounter Summary ---
Author Organization [facility] Address [address] [place] [address] Care Team Providers Care Hospital Clinic Assistant Name Role Phone Rajeev Warren MD Primary Care Provider [phone] Joseph Wright MD Unavailable [phone] Pauly Perales MD Primary Care Provider [phone] Unavailable Unavaila ble Source Comments You are receiving this document because a patient has been referred to you or your facility after avisit at [facility]. The attached Continuity of Care Document (CCD) was sent in order to comply to federal meaningful use standards. The information has been automatically generated from our EHR ([employer]). If you require additional medical records beyond what is included in this CCD, please contactour Release of Information department at [facility] Reason for Visit * Reason Comments Medication Refill Encounter Details Date Type Department Care Team ([facility] st Contact Info) Description 03/17/2022 Refill [facility] INTERNAL MEDICINE DEPARTMENT [address] [place], [place] [phone] Rajeev Warren MD [address] [address] Social History Tobacco Use Types [...] PDT Office Visit [facility]ERGY & IMMUNOLOGY DEPARTMENT [address] [place] [address] Tracey Woo MD [address] [place] [address] ofv 1y f/u Allergic rhinitis, Shot pt 10/08/2024 8:00 AM PDT Office Visit [facility] [address] [facility] [place] [address] Ashkan Padron MD [address] [facility] [place] [address] 3 month follow up Sinus 10/11/2024 11:15 AM PDT Clinical Support [facility]ERGY & IMMUNOLOGY DEPARTMENT [address] [place] [address] Allergy Shot 01/06/2025 8:00 AM PST Office Visit [facility] INTERNAL MEDICINE DEPARTMENT [address] [place] [address] Pauly Perales MD [address] [place] [address] AWV documented as of this encounter Visit Diagnoses Not on filedocumented in this encounter Care Teams Hospital Clinic Assistant Relationship Specialty Start Date End Date Rajeev Warren MD [address] [facility] [address] [place] [address] PCP - General 08/28/12 12/31/23 Pauly Perales MD [address] [place] [address] PCP - General Internal Medicine 01/01/24 Joseph Wright MD [address] [place] [id number] General Surgery 03/28/[address] [place] [address] Health Education 03/18/24 documented as of this encounter
--- OUTSIDE RECORDS SUMMARY | 2024-09-28 11:16 | XMS_ITS | Encounter Summary ---
Author Organization [facility] Address [address] [place] [address] Care Team Providers Care Sumo Wrestler Name Role Phone Rajeev Warren MD Primary Care Provider [phone] Joseph Wright MD Unavailable [phone] Pauly Perales MD Primary Care Provider [phone] Unavailable Unavaila ble Source Comments You are receiving this document because a patient has been referred to you or your facility after avisit at [facility]. The attached Continuity of Care Document (CCD) was sent in order to comply to federal meaningful use standards. The information has been automatically generated from our EHR ([employer] If you require additional medical records beyond what is included in this CCD, please contactour Release of Information department at [facility] Reason for Visit * Reason Comments Medication Refill Encounter Details Date Type Department Care Team (Late st Contact Info) Description 03/04/2023 Refill [facility] INTERNAL MEDICINE DEPARTMENT [address] [place] [address] Marcelo Enrique MD [address] [place], [place] [phone] Social History Tobacco Use Types Packs/Day Years [...] PDT Office Visit [facility]ERGY & IMMUNOLOGY DEPARTMENT [address] [place] [address] Tracey Woo MD [address] [place] [address] ofv 1y f/u Allergic rhinitis, Shot pt 10/08/2024 8:00 AM PDT Office Visit [facility] [address] [facility] [place] [address] Ashkan Padron MD [address] [facility] [place] [address] 3 month follow up Sinus 10/11/2024 11:15 AM PDT Clinical Support [facility]ERGY & IMMUNOLOGY DEPARTMENT [address] [place] [address] Allergy Shot 01/06/2025 8:00 AM PST Office Visit [facility] INTERNAL MEDICINE DEPARTMENT [address] [place] [address] Pauly Perales MD [address] [place] [address] AWV documented as of this encounter Visit Diagnoses Not on filedocumented in this encounter Care Teams Sumo Wrestler Relationship Specialty Start Date End Date Rajeev Warren MD [address] [facility] 2[address] [place] [address] PCP - General 08/28/12 12/31/23 Pauly Perales MD [address] [place] [address] PCP - General Internal Medicine 01/01/24 Joseph Wright MD [address] [place] [phone] General Surgery 03/28/[address] [place] [address] Health Education 03/18/24 documented as of this encounter
--- OUTSIDE RECORDS SUMMARY | 2024-09-28 11:16 | XMS_ITS | Encounter Summary ---
Author Organization [facility] Address [address] [place] [address] Care Team Providers Care Talent Acquisition Associate Name Role Phone Rajeev Warren MD Primary Care Provider [phone] Joseph Wright MD Unavailable [phone] Pauly Perales MD Primary Care Provider [phone] Unavailable Unavaila ble Source Comments You are receiving this document because a patient has been referred to you or your facility after avisit at [facility]. The attached Continuity of Care Document (CCD) was sent in order to comply to federal meaningful use standards. The information has been automatically generated from our EHR ([employer]). If you require additional medical records beyond what is included in this CCD, please contactour Release of Information department at [facility] Reason for Visit * Reason Comments Medication Refill Encounter Details Date Type Department Care Team (Late st Contact Info) Description 05/19/2019 Refill [facility] [address] [place], [place] [phone] William Diaz MD [address] [place] [address] Social History Tobacco Use Types Packs/Day Years [...] Office Visit ALLERGY & IMMUNOLOGY DEPARTMENT [address] [place] [address] Tracey Woo MD [address] [place] [address] ofv 1y f/u Allergic rhinitis, Shot pt 10/08/2024 8:00 AM PDT Office Visit [facility] [address] [facility] [address] [address] Ashkan Padron MD [address] [facility] [address] [address] 3 month follow up Sinus 10/11/2024 11:15 AM PDT Clinical Support [facility]ERGY & IMMUNOLOGY DEPARTMENT [address] [place] [address] Allergy Shot 01/06/2025 8:00 AM PST Office Visit [facility] INTERNAL MEDICINE DEPARTMENT [address] [place] [address] Pauly Perales MD [address] [place] [address] AWV documented as of this encounter Visit Diagnoses Not on filedocumented in this encounter Care Teams Talent Acquisition Associate Relationship Specialty Start Date End Date Rajeev Warren MD [address] [facility] 2ND [place] [address] PCP - General 08/28/12 12/31/23 Pauly Perales MD [address] [place] [address] PCP - General Internal Medicine 01/01/24 Joseph Wright MD [address] [place] [phone] General Surgery 03/28/[address] [place] [address] Health Education 03/18/24 documented as of this encounter
--- OUTSIDE RECORDS SUMMARY | 2024-09-28 11:16 | XMS_ITS | Clinical Summary ---
Author Organization [facility] Address [address] [place] [address] Phone Care Team Providers Care Waiter And Cashier Name Role Phone Unavailable Primary Care Provider Unavailabl e Medications oxyCODONE-acetam inophen (PERCOCET) 5-325 mg Oral tablet Take 1 Tab by mouth every 4 hours as needed. Active conjugated estrogens (PREMARIN) 0.3 mg Oral tablet Take 0.3 mg by mouth daily. Active Social History Tobacco Use Types Packs/Day Years Used Date Smoking Tobacco: Never Assessed Comments Unknown Sex and Gender Information Value Date Recorded Sex Assigned at Not on file Legal Sex Female 5:54 AM FARROWING WORKER Gender Identity Not on file Sexual Orientation Not on file Last Filed Vital Signs Vital Sign Reading Time Taken Comments Blood Pressure 122/95 08/18/2009 4:55 PM CDT Pulse 75 08/18/2009 4:55 PM CDT Temperature 36.8 C (98.2 F) 08/18/2009 1:27 PM CDT Respiratory Rate 20 08/18/2009 4:55 PM CDT Oxygen Saturation 100% 08/18/2009 4:55 PM CDT Inhaled Oxygen Concentration - - Weight - - Height - - Body Mass Index - - Plan of Treatment Health Maintenance Due Date Last Done Comments DTAP/TDAP/TD VACCINES (1 - Tdap) 1988 HEPATITIS B VACCINES (1 of 3 - 19+ 3-dose series) 11/24 HPV/Cotest (21-29) 1990 CERVICAL CANCER SCREENING 12/06/1999 HPV/Cotest (30-65) 12/06/1999 PAP SMEAR 12/06/1999 BREAST CANCER SCREENING 2009 COLORECTAL SCREENING 2014 Colorectal Cancer Screening 2014 FIT-DNA Q 3 years 2014 FIT/FOBT Q 1 year 2014 Flex Sig/CT Colonography Q 5 years 2014 ZOSTER VACCINE (1 of 2) 12/06/2019 INFLUENZA VACCINE (#1) 2024 Insurance [facility] [employer]/TRUE [employer] PPO
--- OUTSIDE RECORDS SUMMARY | 2024-09-28 11:16 | XMS_ITS | Encounter Summary ---
Author Organization [facility] Address [address] [place] [address] Care Team Providers Care Infantry Weapons Officer Name Role Phone Rajeev Warren MD Primary Care Provider [phone] Joseph Wright MD Unavailable [phone] Pauly Perales MD Primary Care Provider [phone] Unavailable Unavaila ble Source Comments You are receiving this document because a patient has been referred to you or your facility after avisit at [facility]. The attached Continuity of Care Document (CCD) was sent in order to comply to federal meaningful use standards. The information has been automatically generated from our EHR ([employer]). If you require additional medical records beyond what is included in this CCD, please contactour Release of Information department at [facility] Encounter Details Date Type Department Care Team ([facility] st Contact Info) Description 02/04/2018 Telephone [facility] INTERNAL MEDICINE DEPARTMENT [address] [place], [place] [phone] Rajeev Warren MD [address] [facility] [address] [place], [place] [phone] Social History Tobacco Use Types Packs/Day Years [...] encounter Miscellaneous Notes * Telephone Encounter - Enrique De Leon - 02/04/2018 10:34 AM PST Relayed to pt that ENT does not have an econometrician and that they can call their insurance to obtain a list of providers and schedule with one of them Relayed to pt that ENT approximates an econometrician sometime in February Pt stated they can wait until ENT obtains an econometrician documented in this encounter Plan of Treatment Upcoming Encounters Date Type Department Care Team (Late st Contact Info) Description 10/07/2024 10:30 AM PDT Office Visit ALLERGY & IMMUNOLOGY DEPARTMENT [address] [place] [address] Tracey Woo MD [address] [place] [address] ofv 1y f/u Allergic rhinitis, Shot pt 10/08/2024 8:00 AM PDT Office Visit [facility] [address] [place] [address] Ashkan Padron MD [address] [facility] [place] [address] 3 month follow up Sinus 10/11/2024 11:15 AM PDT Clinical Support ALLERGY & IMMUNOLOGY DEPARTMENT [address] [place] [address] Allergy Shot 01/06/2025 8:00 AM PST Office Visit [facility] INTERNAL MEDICINE DEPARTMENT [address] [place] [address] Pauly Perales MD [address] [place] [address] AWV documented as of this encounter Visit Diagnoses Not on filedocumented in this encounter Care Teams Infantry Weapons Officer Relationship Specialty Start Date End Date Rajeev Warren MD [address] [facility] [address] [place] [address] PCP - General 08/28/12 12/31/23 aPuly Perales MD [address] [place] [address] PCP - General Internal Medicine 01/01/24 Joseph Wright MD [address] [place] [address] General Surgery 03/28/[address] [place] [address] Health Education 03/18/24 documented as of this encounter
--- OUTSIDE RECORDS SUMMARY | 2024-09-28 11:17 | XMS_ITS | Clinical Summary ---
Author Organization [facility] Address [address] [place] [address] Care Team Providers Care Gate Keeper Name Role Phone No, Physician Primary Care Provider [phone] Allergies No known active allergies Medications albuterol HFA (PROVENTIL HFA,VENTOLIN HFA,PROAIR HFA) 90 mcg/actuation inhaler Inhale 2 puffs every 4 (four) hours as needed 1 Active azelastine (ASTELIN) 137 mcg (0.1 %) nasal spray Administer 2 sprays into affected nostril(s) 2 (two) times a day 3 Active budesonide (PULMICORT) 180 mcg/actuation inhaler Inhale 1 puff Active dexmethylphenidat e XR (FOCALIN XR) 5 mg 24 hr capsule Take 1 capsule (5 mg total) by mouth 2 (two) times a day Active Adderall XR 20 mg 24 hr capsule Take 1 capsule (20 mg total) by mouth wool scourer before breakfast 30 capsule [address] (DEPAKOTE) 125 mg EC tablet Take 2 tablets (250 mg total) by mouth nightly 60 tablet 3 Active Aimovig Autoinjector 140 mg/mL auto-injector 2 Active estrogens, conjugated, (PREMARIN) 0.45 mg tablet Take 1 tablet (0.45 mg total) by mouth daily Active Premarin 0.625 mg tablet 3 Active eszopiclone (LUNESTA) 1 mg tablet Take 1 tablet (1 mg total) by mouth nightly as needed 1 Active famotidine (PEPCID) 10 mg tablet Take 1 tablet (10 mg total) by mouth 2 (two) times a day Active fluticasone furoate-vilantero L (BREO ELLIPTA) 200-25 mcg/dose diskus inhaler Inhale 1 puff daily 2 Active frovatriptan (FROVA) 2.5 mg tablet TAKE ONE TO TWO TABLETS BY MOUTH AT ONSET OF HEADACHE; MAY REPEAT ONCE IN 24 HOURS NEEDED. 3 Active lamoTRIgine (LaMICtal) 150 mg tablet TAKE ONE AND ONE A HALF TABLETS BY MOUTH AT BEDTIME, PLEASE CALL MD RIGHT AWAY IF YOU DEVELOP EITHER RASH, FEVER, OR MOUTH/EYE LESIONS 2 Active levothyroxine (SYNTHROID) 75 mcg tablet Take 1 tablet (75 mcg total) by mouth daily 3 Active liothyronine (CYTOMEL) 5 mcg tablet Take 0.5 tablets (2.5 mcg total) by mouth 2 (two) times a day 2 Active loratadine (CLARITIN) 10 mg tablet Take 1 tablet (10 mg total) by mouth daily Active meloxicam (MOBIC) 15 mg tablet Take 1 tablet (15 mg total) by mouth daily 3 Active montelukast (SINGULAIR) 10 mg tablet Take 1 tablet (10 mg total) by mouth nightly 1 Active olopatadine (PATANOL) 0.1 % ophthalmic solution 3 Active PARoxetine (PAXIL) 30 mg tablet Take 1 tablet (30 mg total) by mouth daily 30 tablet 11 3 Active Nurtec ODT tablet,disintegra ting PLACE 1 TABLET BY MOUTH DAILY NEEDED FOR MIGRAINE 3 Active temazepam (RESTORIL) 15 mg capsule TAKE UP TO FOUR CAPSULES BY MOUTH DAILY 3 Active Spiriva Respimat 1.25 mcg/actuation inhaler Inhale 2 puffs daily 3 Active traZODone (DESYREL) 50 mg tablet Take 1 tablet (50 mg total) by mouth 1 Active vortioxetine (TRINTELLIX) 5 mg tablet Take by mouth Active Active Problems Problem Noted Date Diagnosed Date Mixed hyperlipidemia 08/16/2021 TAMARA (obstructive sleep apnea) 02/07/2017 Overview (09/03/2022): Polysomnogram demonstrates mild obstructive sleep apnea with an RDI of 7.13. AHI is low at 2.4. Oxygen saturation eun was 86%. Patient demonstrated decreased sleep efficiency at 72% with an increased latency to sleep onset and 43 min. And an increased latency to REM onset at 209 min. Total sleep time during the diagnostic sleep study was 320 min. Sleep architecture is notable for decreased REM sleep. There were 4 nonspecific arousals yielding a nonspecific arousal index of 0.75. Insurance did not authorize treatment. Chronic insomnia 12/13/2016 Fatigue 12/13/2016 Indigestion 12/13/2016 Moderate persistent asthma without complication 12/13/2016 Hypothyroidism 08/28/2012 Migraine with aura and witho ut status migrainosus, not intractable 08/28/2012 Overview (09/03/2022): Follows with Dr Enriquez Seasonal allergies 08/28/2012 Bipolar II disorder 11/13/2011 Surgical History Surgery Date Site/Laterality Comments COSMETIC SURGERY Medical History Medical History Date Comments Asthma Depression Migraines Thyroid disease Family History Medical History Relation Name Comments Bipolar disorder Father EZIO Family hist ory of bipolar disorder - (Added by TW Conv) Cancer Father EZIO Mental illness Father EZIO Mental illness Maternal Grandmother Cynthia laura Anemia Mother Cynthia Arthritis Mother Cynthia Hearing loss Mother Cynthia Allergy (severe) Sister Yara Relation Name Status Comments Father EZIO Maternal Grandmother Cynthia laura Mother Cynthia Sister Yara Social History Tobacco Use Types Packs/Day Years Used Date Smoking Tobacco: Never Smokeless Tobacco: Never Tobacco Cessation:Counseling Given: Not Answered Personal Safety Answer Date Recorded Getting School Help Needed Not on file 04/22 Comments Unknown Sex and Gender Information Value Date Recorded Sex Assigned at Not on file Legal Sex Female 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 Gender Identity Not on file Sexual Orientation Not on file Obstetrics History Last Filed Vital Signs Vital Sign Reading Time Taken Comments Blood Pressure 98/74 09/03/2022 9:22 AM CDT Pulse 82 09/03/2022 9:22 AM CDT Temperature 36.9 C (98.4 F) 09/03/2022 9:22 AM CDT Respiratory Rate 20 09/03/2022 9:22 AM CDT Oxygen Saturation 98% 09/03/2022 9:22 AM CDT Inhaled Oxygen Concentration - - Weight 78.9 kg (174 lb) 09/03/2022 9:22 AM CDT Height 172.7 cm (5' 8) 09/03/2022 9:22 AM CDT Body Mass Index 26.46 09/03/2022 9:22 AM CDT Plan of Treatment Health Maintenance Due Date Last Done Comments Breast Cancer Screening-Mammogram 1969 Cervical Cancer Screening 1969 Colon Cancer Screening-Colonoscopy 1969 Depression Screening 1969 Hepatitis C Screening 1969 Hepatitis B Screening 12/06/1987 Regular Well Visit/Exam 18-64 12/06/1987 Pneumococcal vaccine <65 (2 of 2 - PCV) 02/04/2019 02/04/2018 Influenza Vaccine (#1) 2024 , 11/16/2019, 10/29/2019, Additional history exists DTaP/Tdap/Td Vaccine (2 - Td or Tdap) 01/20/2028 01/19/2018 Zoster Vaccine Completed 08/31/2020, 06/29/2020 Insurance MEDICARE [facility] MEDICARE [facility] Care Teams Gate Keeper Relationship Specialty Start Date End Date No, Physician PCP - General 09/03/22
--- OUTSIDE RECORDS SUMMARY | 2024-09-28 11:17 | XMS_ITS | Encounter Summary ---
Author Organization [employer] Address [address] [place] [address] Phone Care Team Providers Care Manager Story Name Role Phone Pauly Perales MD Primary Care Provider [phone] Encounter Details Date Type Department Care Team (Latest Contact Info) Description 01/21/2023 Lab Interfaced Orders LAB INTERFACED ORDERS [phone] Essential (primary) hypertension; Encounter for general adult medical examination without abnormal findings Social History Tobacco Use Types Packs/Day Years [...] documented as of this encounter Results * CBC with Auto Differential (02/10/2023 9:30 AM PST) WBC 6.1 4.0 - 10.0 10*3/uL 02/10/2023 2:36 PM PST [facility] RBC 4.13 3.77 - 5.19 10*6/uL 02/10/2023 2:36 PM PST [facility] Hemoglobin 13.2 11.0 - 15.5 g/dL 02/10/2023 2:36 PM PST [facility] Hematocrit 41.1 34.9 - 47.0 % 02/10/2023 2:36 PM PST [facility] MCV 99.5 81.3-101.6 fL fL 02/10/2023 2:36 PM PST [facility] MCH 32.0 26.0 - 34.0 pg 02/10/2023 2:36 PM PST [facility] MCHC 32.1 30.0 - 36.0 g/dL 02/10/2023 2:36 PM PST [facility] RDW-CV 12.9 11.6 - 14.4 % 02/10/2023 2:36 PM PST [facility] RDW-SD 47.3 35.6 - 48.0 fL 02/10/2023 2:36 PM PST [facility] Platelet Count 349 150 - 450 10*3/uL 02/10/2023 2:36 PM PST [facility] MPV 9.8 8.8 - 12.5 fL 02/10/2023 2:36 PM PST [facility] Neutrophils Relative 44 % 02/10/2023 2:36 PM PST [facility] Lymphocytes Relative 47 % 02/10/2023 2:36 PM PST [facility] Monocytes Relative 7 % 02/10/2023 2:36 PM PST [facility] Eosinophils Relative 1 % 02/10/2023 2:36 PM PST [facility] Basophils Relative 1 % 02/10/2023 2:36 PM PST [facility] Immature Granulocytes % 0 % 02/10/2023 2:36 PM PST [facility] Neutrophils Absolute 2.7 1.7 - 6.4 10*3/uL 02/10/2023 2:36 PM PST [facility] Lymphocytes Absolute 2.9 1.0 - 3.5 10*3/uL 02/10/2023 2:36 PM PST [facility] Monocytes Absolute 0.4 0.1 - 0.8 10*3/uL 02/10/2023 2:36 PM PST [facility] Eosinophils Absolute 0.1 0.0 - 0.4 10*3/uL 02/10/2023 2:36 PM PST [facility] Basophils Absolute 0.0 0.0 - 0.2 10*3/uL 02/10/2023 2:36 PM PST [facility] Absolute Immature Granulocytes 0.0 0.0 - 0.2 10*3/uL 02/10/2023 2:36 PM PST [facility] Nucleated RBCS 0.0 <1.0 /100 WBCs 02/10/2023 2:36 PM PST [facility] Blood Venipuncture / Unknown 02/10/2023 9:30 AM PST 02/10/2023 9:30 AM PST us Lorna Ch MD LAB BLOOD ORDERABLES Final Res ult [facility] [address] [place] [address], * Basic Metabolic Panel (02/10/2023 9:30 AM PST) Sodium 138 134 - 145 mmol/L 02/10/2023 1:34 PM PST [facility] Potassium 4.1 3.5 - 5.1 mmol/L 02/10/2023 1:34 PM PST [facility] Chloride 104 98 - 110 mmol/L 02/10/2023 1:34 PM PST [facility] CO2 31 21 - 32 mmol/L 02/10/2023 1:34 PM PST [facility] Anion Gap 3 3 - 14 mmol/L 02/10/2023 1:34 PM PST [facility] Blood Urea Nitrogen (BUN) 12 7 - 24 mg/dL 02/10/2023 1:34 PM PST [facility] Creatinine 0.67 0.55 - 1.02 mg/dL 02/10/2023 1:34 PM PST [facility] eGFR 101 >60 mL/min/1.7 3m2 02/10/2023 1:34 PM PST [facility] BUN/Creatinine Ratio 17.9 7.0 - 28.0 02/10/2023 1:34 PM PST [facility] Calcium 9.1 8.2 - 10.2 mg/dL 02/10/2023 1:34 PM PST [facility] Fasting 8 hours or more? No 02/10/2023 1:34 PM PST [facility] Glucose 85 75 - 140 mg/dL 02/10/2023 1:34 PM PST [facility] Comment: Normal fasting, 75-99 mg/dL Impaired fasting, 100-125 mg/dL Provisional diabetic, fasting over 125 mg/dL Non fasting, 75-140 mg/dL Blood Venipuncture / Unknown 02/10/2023 9:30 AM PST 02/10/2023 9:30 AM PST us Lorna Ch MD LAB BLOOD ORDERABLES Final Res ult [facility] [address] [place] [address], documented in this encounter Visit Diagnoses Diagnosis Essential (primary) hypertension Unspecified essential hypertension Encounter for general adult medical examination without abnormal findings documented in this encounter Additional Health Concerns Infection Onset Date Last Indicated Resolved Time Respiratory Panel (rule out) 03/26/2023 03/26/2023 03/26/2023 6:38 PM PST Respiratory Panel (rule out) 03/30/2023 03/30/2023 03/30/2023 12:41 PM PST documented as of this encounter Care Teams Manager Story Relationship Specialty Start Date End Date Pauly Perales MD [address] [place] [address] PCP - General Internal Medicine 05/25/24 documented as of this encounter
--- OUTSIDE RECORDS SUMMARY | 2024-09-28 11:17 | XMS_ITS | Encounter Summary ---
Author Organization [facility] Address [address] [place] [address] Phone Care Team Providers Care Brass Roller Name Role Phone Pauly Perales MD Primary Care Provider [phone] Encounter Details Date Type Department Care Team (Latest Contact Info) Description 08/06/2022 Lab Interfaced Orders LAB INTERFACED ORDERS [phone] Other fatigue; Iron deficiency Social History Tobacco Use Types Packs/Day Years [...] documented as of this encounter Results * Ferritin (08/06/2022 8:28 AM PDT) Ferritin 29 8 - 252 ng/mL 08/06/2022 12:43 PM PDT [facility] Blood Venipuncture / Unknown 08/06/2022 8:28 AM PDT 08/06/2022 8:28 AM PDT us Pauly Perales MD LAB BLOOD ORDERABLES Final Res ult [facility] [address] [place] [address], [place] [phone] * CBC with Auto Differential (08/06/2022 8:28 AM PDT) [facility] Signature WBC 6.0 4.0 - 10.0 10*3/uL 08/06/2022 12:14 PM PDT [facility] RBC 4.11 3.77 - 5.19 10*6/uL 08/06/2022 12:14 PM PDT [facility] Hemoglobin 13.2 11.0 - 15.5 g/dL 08/06/2022 12:14 PM PDT [facility] Hematocrit 41.0 34.9 - 47.0 % 08/06/2022 12:14 PM PDT [facility] MCV 99.8 81.3-101.6 fL fL 08/06/2022 12:14 PM PDT [facility] MCH 32.1 26.0 - 34.0 pg 08/06/2022 12:14 PM PDT [facility] MCHC 32.2 30.0 - 36.0 g/dL 08/06/2022 12:14 PM PDT [facility] RDW-CV 12.9 11.6 - 14.4 % 08/06/2022 12:14 PM PDT [facility] RDW-SD 47.0 35.6 - 48.0 fL 08/06/2022 12:14 PM PDT [facility] Platelet Count 297 150 - 450 10*3/uL 08/06/2022 12:14 PM PDT [facility] MPV 10.0 9.4 - 12.4 fL 08/06/2022 12:14 PM PDT [facility] Neutrophils Relative 52 % 08/06/2022 12:14 PM PDT [facility] Lymphocytes Relative 38 % 08/06/2022 12:14 PM PDT [facility] Monocytes Relative 8 % 08/06/2022 12:14 PM PDT [facility] Eosinophils Relative 2 % 08/06/2022 12:14 PM PDT [facility] Basophils Relative 1 % 08/06/2022 12:14 PM PDT [facility] Immature Granulocytes % 0 % 08/06/2022 12:14 PM PDT [facility] Neutrophils Absolute 3.1 1.7 - 6.4 10*3/uL 08/06/2022 12:14 PM PDT [facility] Lymphocytes Absolute 2.3 1.0 - 3.5 10*3/uL 08/06/2022 12:14 PM PDT [facility] Monocytes Absolute 0.5 0.1 - 0.8 10*3/uL 08/06/2022 12:14 PM PDT [facility] Eosinophils Absolute 0.1 0.0 - 0.4 10*3/uL 08/06/2022 12:14 PM PDT [facility] Basophils Absolute 0.0 0.0 - 0.2 10*3/uL 08/06/2022 12:14 PM PDT [facility] Absolute Immature Granulocytes 0.0 0.0 - 0.2 10*3/uL 08/06/2022 12:14 PM PDT [facility] Nucleated RBCS 0.0 <1.0 /100 WBCs 08/06/2022 12:14 PM PDT [facility] Blood Venipuncture / Unknown 08/06/2022 8:28 AM PDT 08/06/2022 8:28 AM PDT us Pauly Perales MD LAB BLOOD ORDERABLES Final Res ult Performing Organization Address City/State/[facility] Co de Phone Number [facility] [address] [place] [address], documented in this encounter Visit Diagnoses Diagnosis Other fatigue Iron deficiency Disorders of iron metabolism documented in this encounter Additional Health Concerns Infection Onset Date Last Indicated Resolved Time Respiratory Panel (rule out) 03/26/2023 03/26/2023 03/26/2023 6:38 PM PST Respiratory Panel (rule out) 03/30/2023 03/30/2023 03/30/2023 12:41 PM PST documented as of this encounter Care Teams Brass Roller Relationship Specialty Start Date End Date Pauly Perales MD [address] [place] [address] PCP - General Internal Medicine 05/25/24 documented as of this encounter
--- OUTSIDE RECORDS SUMMARY | 2024-09-28 11:17 | XMS_ITS | Clinical Summary ---
Author Organization [employer] Address [address] [place] [address] Phone Care Team Providers Care Engraver Optical Frames Name Role Phone Pauly Perales MD Primary Care Provider [phone] Allergies Active Allergy Reactions Criticality Noted Date Comments Hydrocodone Anxiety Low 03/27/2007 Other Medium 06/10/2017 [place], perfume, fabric softener, lavender Medications loratadine (CLARITIN) 10 MG tablet Take 1 tablet (10 mg total) by mouth daily. Active temazepam (RESTORIL) 15 MG capsule Take by mouth nightly as needed for insomnia. Active traZODone (DESYREL) 50 MG tablet Take 1 tablet (50 mg total) by mouth nightly. Active levothyroxine (SYNTHROID) 75 MCG tablet Take 1 tablet (75 mcg total) by mouth daily at 06:00. Active L-Methylfolate (DEPLIN) 7.5 MG tablet Take 7.5 mg by mouth daily. Active azelastine (ASTELIN) 0.1 % nasal spray Administer 1 spray into each nostril 2 (two) times a day. Use in each nostril as directed Active Breo Ellipta 200-25 MCG/INH aerosol powder 2 Active montelukast (SINGULAIR) 10 MG tablet Take 1 tablet (10 mg total) by mouth nightly. 1 Active Spiriva Respimat 1.25 MCG/ACT aerosol solution 1 Active divalproex (DEPAKOTE) 125 MG EC tablet Take 1 tablet (125 mg total) by mouth every evening. 3 Active Premarin 0.625 MG tablet Take 0.5 tablets (0.3125 mg total) by mouth daily. 3 Active frovatriptan (FROVA) 2.5 MG tablet Take 1-2 tablets (2.5-5 mg total) by mouth Daily as needed. 3 Active lamoTRIgine (LaMICtal) 150 MG tablet Take 1.5 tablets (225 mg total) by mouth nightly. 3 Active liothyronine (CYTOMEL) 5 MCG tablet Take 0.5 tablets (2.5 mcg total) by mouth before breakfast. 3 Active lisinopril (PRINIVIL) 10 MG tablet Take 1 tablet (10 mg total) by mouth nightly. 3 Active Lurasidone (LATUDA) 20 MG tablet Take 1 tablet (20 mg total) by mouth nightly. 4 Active meloxicam (MOBIC) 15 MG tablet Take 1 tablet (15 mg total) by mouth nightly. 3 Active Nurtec 75 MG tablet dispersible Take 1 tablet by mouth daily as needed. 4 Active PARoxetine (PAXIL) 20 MG tablet Take 1 tablet (20 mg total) by mouth nightly. 3 Active Erenumab-aooe (AIMOVIG SC) Inject under the skin. For migraines Active OnabotulinumtoxinA (BOTOX) 100 units reconstituted solution once. For migraines Active omeprazole (PriLOSEC) 20 MG capsule Take 1 capsule (20 mg total) by mouth. Active LORazepam (ATIVAN) 0.5 MG tablet 3 Active ondansetron ODT (ZOFRAN-ODT) 4 MG disintegrating tablet As needed 4 Active acetaminophen-code ine (TYLENOL #3) 300-30 MG per tablet Take 1 tablet by mouth every 4 (four) hours as needed for moderate pain. 10 tablet 4 Active Active Problems Problem Noted Date Diagnosed Date Shock 03/26/2023 Encounters Date Type Department Care Team Description 07/05/2024 Lab Interfaced Orders LAB INTERFACED ORDERS [phone] Chronic nasopharyngitis from Last 3 Months Immunizations Immunization Administration Dates Next Due Flu Trivalent Injectable 11/16/2019,12/26,12/04/2016,11/09 Influenza, Injectable, MDCK, Preservative free, Quadrivalent 12/26/2016 Influenza, Mdck, Trivalent, Pf 10/15/2018,2017 Influenza, Recombinant, Quad rivalent, Pf 10/29/2019 Influenza, Unspecified formulation 11/09/2014 Pneumococcal Polysaccharide PPV23 02/04/2018 Tdap 01/19/2018 Social History Tobacco Use Types Packs/Day Years Used Date Smoking Tobacco: Never Smokeless Tobacco: Never Tobacco Cessation:Counseling Given: Not Answered Alcohol Use Standard Drinks/Week Comments No 0 (1 standard drink = 0.6 oz pur e alcohol) [facility] Utilities Answer Date Recorded In the past 12 months has e [employer], gas, oil, or water company threatened to [...] Orientation Straight 03/26/2023 5: 44 PM PST Last Filed Vital Signs Vital Sign Reading Time Taken Comments Blood Pressure 138/98 05/25/2024 2:30 PM PDT Pulse 68 05/25/2024 1:24 PM PDT Temperature 36.7 C (98.1 F) 05/25/2024 12:06 PM PDT Respiratory Rate 16 05/25/2024 1:24 PM PDT Oxygen Saturation 100% 05/25/2024 2:30 PM PDT Inhaled Oxygen Concentration - - Weight 73 kg (161 lb) 05/25/2024 12:06 PM PDT Height 172.7 cm (5' 8) 05/25/2024 12:06 PM PDT Body Mass Index 24.48 05/25/2024 12:06 PM PDT Plan of Treatment Health Maintenance Due Date Last Done Comments Annual FOBT/FIT (Hemoccult) 1969 FIT-DNA (Cologuard) 1969 Pap with HPV 1969 Sigmoidoscopy 1969 Cervical Cancer Screening 1990 PAP Smear 1990 Mammogram 06/22/2022 06/22/2021, 03/22/2021 Influenza Vaccine (#1) 2024 , 10/15/2018, 01/19/2018, Additional history exists Colonoscopy 01/29/2027 01/29/2017 Colorectal Cancer Screening 01/29/2027 DTaP,Tdap,and Td Vaccines (2 - Td or Tdap) 01/20/2028 01/19/2018 HIV Screening Completed 02/12/2019 Hepatitis C Screening Completed 02/12/2019 Zoster Vaccines Completed 08/31/2020, 06/29/2020 COVID-19 Vaccine Completed 10/24/2023, , 01/08/2022, Additional history exists Pneumococcal Vaccine: 50+ Years Completed 06/05/2024, 08/16/2021, 02/04/2018 Procedures Procedure Name Priority Date/Time Associated Diagnosis Comments RESPIRATORY CULTURE AND GRAM STAIN, AEROBIC Routine 07/05/2024 8:30 AM PDT Chronic nasopharyngitis HEPATITIS PANEL, CHRONIC Routine 02/12/2019 8:53 AM PST Encounter for screening for infections with a predominantly sexual mode of transmission HIV 1/2 ANTIBODY, P24 ANTIGEN WITH CONFIRMATION Routine 02/12/2019 8:53 AM PST Encounter for screening for infections with a predominantly sexual mode of transmission from Last 3 Months or Most Recently Relevant to Health Maintenance Results * Respiratory Cult and Gram stain, Aerobic (07/05/2024 8:30 AM PDT) Culture No Staphylococcus aureus isolated MIRELLA VITEK 07/07/2024 9:31 AM PDT [facility] Culture Moderate Usual Respiratory [place] MIRELLA VITEK 07/07/2024 9:31 AM PDT [facility] Gram Stain Not Applicable 07/07/2024 9:31 AM PDT [facility] Nasopharyngeal Swab Nasopharyngeal structure / Unknown 07/05/2024 8:30 AM PDT 07/05/2024 11:47 AM PDT Ashkan Padron MD LAB [facility]OLOGY [facility] Final Result [facility] [address] [place] [address], * HIV 1/2 Antibody, P24 Antigen with Confirmation (02/12/2019 8:53 AM PST) Pathologist [facility] HIV 1/2 Antibody, P24 Antigen Negative Negative 02/12/2019 2:03 PM PST [facility] Blood Venipuncture / Unknown 02/12/2019 8:53 AM PST 02/12/2019 8:53 AM PST Rajeev Warren MD LAB BLOOD ORDERABLES Final Res ult [facility] [address] [place] [address], * (ABNORMAL) Hepatitis Panel, Chronic (02/12/2019 8:53 AM PST) Hepatitis B Core Antibody, Total Negative Negative 02/12/2019 2:05 PM PST [facility] Hepatitis B Surface Antibody Qualitative Positive(A) Negative 02/12/2019 2:05 PM PST [facility] Hepatitis B Surface Antigen Negative Negative 02/12/2019 2:05 PM PST [facility] Hepatitis C Antibody Negative Negative 02/12/2019 2:05 PM PST [facility] Blood Venipuncture / Unknown 02/12/2019 8:53 AM PST 02/12/2019 8:53 AM PST us Rajeev Warren MD LAB BLOOD ORDERABLES Final Res ult [facility] [address] [place] [address], [place] [phone] from Last 3 Months or Most Recently Relevant to Health Maintenance Insurance MEDICARE Member Subscriber Plan / Payer (Ef fective 2012-Present) Name:GabriellekandyLisette Member ID:[id number] Relation to Subscriber:Self Name:Lisette Perez Subscriber ID:[id number] Payer ID:[id number] Group ID:Not on file Type:Medicare Address: [address] [address] [facility] Advance Directives For more information, please contact: [phone] * Full Code (Latest Code Status on File) Date Activated Date Inactivated Comments 03/26/2023 9:26 PM 03/31/2023 6:50 PM Care Teams Engraver [employer] Frames Relationship Specialty Start Date End Date Pauly Perales MD [address] [place] [address] PCP - General Internal Medicine 05/25/24
--- OUTSIDE RECORDS SUMMARY | 2024-09-28 11:17 | XMS_ITS | Encounter Summary ---
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 Social History Tobacco Use Types Packs/Day Years [...] this encounter Results * Thyroid Reflex Panel (10/12/2021 8:50 AM PDT) TSH Ultrasensitive 1.411 0.400 - 4.500 uIU/mL 10/12/2021 1:14 PM PDT [facility] Comment:Reflex testing not i ndicated Blood Venipuncture / Unknown 10/12/2021 8:50 AM PDT 10/12/2021 8:50 AM PDT us Meagan Hein PA-C LAB BLOOD ORDERABLES Final Result [facility] [address] [place] [address], * 17-Hydroxypregnenolone (10/12/2021 8:50 AM PDT) 17 [place] Pregnenolone, Serum, MS 56 ng/dL 10/18/2021 8:05 PM PDT [facility] Comment: This test was developed and its performance characteristics determined by [facility]. It has not been cleared or approved by the Food and Drug Administration. Reference Range: Adults: 53 - 357 Blood Venipuncture / Unknown 10/12/2021 8:50 AM PDT 10/12/2021 8:50 AM PDT Narrative [facility] - 10/18/2021 8:05 PM PDT Performed at: [facility] [employer] [address] [place] [id number] Manager Inventory Control: Izaiah Babb MD, Phone: [phone] Meagan Hein PA-C LAB BLOOD ORDERABLES Final Result Performing Organization Address City/[facility] Co de Phone Number [facility] [address] [place] [address] * Vitamin B12 and Folate (10/12/2021 8:50 AM PDT) Vitamin B12 552 193 - 986 pg/mL 10/12/2021 2:33 PM PDT [facility] Folate >20.0 >4.0 ng/mL 10/12/2021 2:33 PM PDT [facility] Comment: Serum folate levels < 4 ng/mL should be considered as folate deficient. This universal cutoff is established by the [place] NHANES III data (ref 1). Ref 1: Food and Nutrition Bulletin 2008 29(2): M889-Y431 Methotrexate and Leucovorin (folinic acid) interfere with the measurement of folate. These chemotherapeutic drugs cross-react with folate binding proteins in the folate assay. Blood Venipuncture / Unknown 10/12/2021 8:50 AM PDT 10/12/2021 8:50 AM PDT Meagan Hein PA-C LAB BLOOD ORDERABLES Final Result [facility] [address] [place] [address], * Hemoglobin A1c w/EAG (10/12/2021 8:50 AM PDT) Hemoglobin A1c 5.2 <5.7 % 10/13/2021 12:04 AM PDT [facility] Comment: Hgb A1c Result Interpretation: <5.7 Normal 5.7-6.4 Increased risk for diabetes >6.4 Diagnostic for diabetes <7.0% ADA guideline for good control Estimated Average Glucose 103 mg/dL 10/13/2021 12:04 AM PDT [facility] Blood Venipuncture / Unknown 10/12/2021 8:50 AM PDT 10/12/2021 8:50 AM PDT Meagan Hein PA-C LAB BLOOD ORDERABLES Final Result Performing Organization Address [facility] Co de Phone Number [facility] [address] [place] [address], * CRP (C-Reactive Protein), Quantitative (10/12/2021 8:50 AM PDT) CRP (C-Reactive Protein) <2.9 <10.0 mg/L 10/12/2021 1:06 PM PDT [facility] Blood Venipuncture / Unknown 10/12/2021 8:50 AM PDT 10/12/2021 8:50 AM PDT Meagan MCNEILLC LAB BLOOD ORDERABLES Final Result Performing Organization Address City/[facility]/ZIP Co de Phone Number [facility] [address] [place] [address], * Sedimentation Rate (10/12/2021 8:50 AM PDT) Sed Rate 9 <=30 mm/Hr 10/12/2021 1:39 PM PDT [facility] Blood Venipuncture / Unknown 10/12/2021 8:50 AM PDT 10/12/2021 8:50 AM PDT Meagan Hein PA-C LAB BLOOD ORDERABLES Final Result [facility] [address] [place] [address], * Comprehensive Metabolic Panel (10/12/2021 8:50 AM PDT) Sodium 142 134 - 145 mmol/L 10/12/2021 1:14 PM PDT [facility] Potassium 4.2 3.5 - 5.1 mmol/L 10/12/2021 1:14 PM PDT [facility] Chloride 107 98 - 110 mmol/L 10/12/2021 1:14 PM PDT [facility] CO2 29 21 - 32 mmol/L 10/12/2021 1:14 PM PDT [facility] Anion Gap 6 3 - 14 mmol/L 10/12/2021 1:14 PM PDT [facility] Blood Urea Nitrogen (BUN) 17 7 - 24 mg/dL 10/12/2021 1:14 PM PDT [facility] Creatinine 0.69 0.55 - 1.02 mg/dL 10/12/2021 1:14 PM PDT [facility] eGFR 101 >60 mL/min/1.7 3m2 10/12/2021 1:14 PM PDT [facility] BUN/Creatinine Ratio 24.6 7.0 - 28.0 10/12/2021 1:14 PM PDT [facility] Calcium 9.2 8.2 - 10.2 mg/dL 10/12/2021 1:14 PM PDT [facility] Total Protein 6.9 6.4 - 8.2 g/dL 10/12/2021 1:14 PM PDT [facility] Albumin 3.7 3.4 - 5.0 g/dL 10/12/2021 1:14 PM PDT [facility] Globulin 3.2 2.0 - 4.1 g/dL 10/12/2021 1:14 PM PDT [facility] Albumin/Globulin Ratio 1.2 0.9 - 1.8 10/12/2021 1:14 PM PDT [facility] Total Bilirubin 0.2 0.2 - 1.0 mg/dL 10/12/2021 1:14 PM PDT [facility] Comment:Use of this assay is not recommended for patients undergoing treatment with Eltrombopag due to the potential for falsely elevated results. AST (SGOT) 17 <39 U/L 10/12/2021 1:14 PM PDT [facility] ALT (SGPT) 28 <56 U/L 10/12/2021 1:14 PM PDT [facility] Alkaline Phosphatase 68 37 - 128 U/L 10/12/2021 1:14 PM PDT [facility] Fasting 8 hours or more? No 10/12/2021 1:14 PM PDT [facility] Glucose 81 75 - 140 mg/dL 10/12/2021 1:14 PM PDT [facility] Comment: Normal fasting, 75-99 mg/dL Impaired fasting, 100-125 mg/dL Provisional diabetic, fasting over 125 mg/dL Non fasting, 75-140 mg/dL Blood Venipuncture / Unknown 10/12/2021 8:50 AM PDT 10/12/2021 8:50 AM PDT Meagan Hein PA-C LAB BLOOD ORDERABLES Final Result [facility] [address] [place] [address], * CBC with Auto Differential (10/12/2021 8:50 AM PDT) [facility] WBC 6.2 4.0 - 10.0 10*3/uL 10/12/2021 1:33 PM PDT [facility] RBC 4.52 3.77 - 5.19 10*6/uL 10/12/2021 1:33 PM PDT [facility] Comment:Please note new RBC reference range effective 20 Hemoglobin 14.1 11.0 - 15.5 g/dL 10/12/2021 1:33 PM PDT [facility] Hematocrit 43.7 34.9 - 47.0 % 10/12/2021 1:33 PM PDT [facility] MCV 96.7 81.3-101.6 fL fL 10/12/2021 1:33 PM PDT [facility] Comment:Please note new MCV reference range effective 20 MCH 31.2 26.0 - 34.0 pg 10/12/2021 1:33 PM PDT [facility] MCHC 32.3 30.0 - 36.0 g/dL 10/12/2021 1:33 PM PDT [facility] RDW-CV 13.0 11.6 - 14.4 % 10/12/2021 1:33 PM PDT [facility] RDW-SD 46.4 35.6 - 48.0 fL 10/12/2021 1:33 PM PDT [facility] Platelet Count 337 150 - 450 10*3/uL 10/12/2021 1:33 PM PDT [facility] MPV 9.7 9.4 - 12.4 fL 10/12/2021 1:33 PM PDT [facility] Neutrophils Relative 53 % 10/12/2021 1:33 PM PDT [facility] Lymphocytes Relative 37 % 10/12/2021 1:33 PM PDT [facility] Monocytes Relative 8 % 10/12/2021 1:33 PM PDT [facility] Eosinophils Relative 1 % 10/12/2021 1:33 PM PDT [facility] Basophils Relative 1 % 10/12/2021 1:33 PM PDT [facility] Immature Granulocytes % 0 % 10/12/2021 1:33 PM PDT [facility] Neutrophils Absolute 3.2 1.7 - 6.4 10*3/uL 10/12/2021 1:33 PM PDT [facility] Lymphocytes Absolute 2.3 1.0 - 3.5 10*3/uL 10/12/2021 1:33 PM PDT [facility] Monocytes Absolute 0.5 0.1 - 0.8 10*3/uL 10/12/2021 1:33 PM PDT [facility] Eosinophils Absolute 0.1 0.0 - 0.4 10*3/uL 10/12/2021 1:33 PM PDT [facility] Basophils Absolute 0.0 0.0 - 0.2 10*3/uL 10/12/2021 1:33 PM PDT [facility] Absolute Immature Granulocytes 0.0 0.0 - 0.2 10*3/uL 10/12/2021 1:33 PM PDT [facility] Nucleated RBCS 0.0 <1.0 /100 WBCs 10/12/2021 1:33 PM PDT [facility] Blood Venipuncture / Unknown 10/12/2021 8:50 AM PDT 10/12/2021 8:50 AM PDT Meagan Hein PA-C LAB BLOOD ORDERABLES Final Result [facility] [address] [place] [address], documented in this encounter Visit Diagnoses Diagnosis Cervicalgia Abnormal finding of blood chemistry, unspecified Localized swelling, mass and lump, neck Swelling, mass, or lump in head and neck 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
--- OUTSIDE RECORDS SUMMARY | 2024-09-28 11:17 | XMS_ITS | Encounter Summary ---
Author Organization [employer] Address [address] [place] [address] Phone Care Team Providers Care Novelty Twister Tender Name Role Phone Pauly Perales MD Primary Care Provider [phone] Encounter Details Date Type Department Care Team (Latest Contact Info) Description 01/19/2023 Lab Interfaced Orders LAB INTERFACED ORDERS [phone] Hypertensive urgency; Essential (primary) hypertension Social History Tobacco Use [...] this encounter Results * Thyroid Reflex Panel (01/19/2023 7:27 PM PST) TSH Ultrasensitive 2.780 0.400 - 4.500 uIU/mL 01/19/2023 7:52 PM PST [facility] Comment:Reflex testing not i ndicated Blood Venipuncture / Unknown 01/19/2023 7:27 PM PST 01/19/2023 7:27 PM PST Kisha Wu DO LAB BLOOD ORDERABLES F inal Result [facility] [address] [place] [address], * Comprehensive Metabolic Panel (01/19/2023 7:27 PM PST) Sodium 141 134 - 145 mmol/L 01/19/2023 7:47 PM PST [facility] Potassium 4.1 3.5 - 5.1 mmol/L 01/19/2023 7:47 PM PST [facility] Chloride 107 98 - 110 mmol/L 01/19/2023 7:47 PM PST [facility] CO2 27 21 - 32 mmol/L 01/19/2023 7:47 PM PST [facility] Anion Gap 7 3 - 14 mmol/L 01/19/2023 7:47 PM PST [facility] Blood Urea Nitrogen (BUN) 10 7 - 24 mg/dL 01/19/2023 7:47 PM PST [facility] Creatinine 0.68 0.55 - 1.02 mg/dL 01/19/2023 7:47 PM PST [facility] eGFR 100 >60 mL/min/1.7 3m2 01/19/2023 7:47 PM PST [facility] BUN/Creatinine Ratio 14.7 7.0 - 28.0 01/19/2023 7:47 PM PST [facility] Calcium 9.4 8.2 - 10.2 mg/dL 01/19/2023 7:47 PM PST [facility] Total Protein 7.2 6.4 - 8.2 g/dL 01/19/2023 7:47 PM PST [facility] Albumin 4.0 3.4 - 5.0 g/dL 01/19/2023 7:47 PM PST [facility] Globulin 3.2 2.0 - 4.1 g/dL 01/19/2023 7:47 PM PST [facility] Albumin/Globulin Ratio 1.3 0.9 - 1.8 01/19/2023 7:47 PM PST [facility] Total Bilirubin 0.3 0.2 - 1.0 mg/dL 01/19/2023 7:47 PM PST [facility] Comment:Use of this assay is not recommended for patients undergoing treatment with Eltrombopag due to the potential for falsely elevated results. AST (SGOT) 22 <39 U/L 01/19/2023 7:47 PM PST [facility] ALT (SGPT) 27 <56 U/L 01/19/2023 7:47 PM PST [facility] Alkaline Phosphatase 76 37 - 128 U/L 01/19/2023 7:47 PM PST [facility] Fasting 8 hours or more? Unknown 01/19/2023 7:47 PM PST [facility] Glucose 87 75 - 140 mg/dL 01/19/2023 7:47 PM PST [facility] Comment: Normal fasting, 75-99 mg/dL Impaired fasting, 100-125 mg/dL Provisional diabetic, fasting over 125 mg/dL Non fasting, 75-140 mg/dL Blood Venipuncture / Unknown 01/19/2023 7:27 PM PST 01/19/2023 7:27 PM PST Kisha Wu DO LAB BLOOD ORDERABLES F inal Result [facility] [address] [place] [address], * (ABNORMAL) CBC with Auto Differential (01/19/2023 7:27 PM PST) Pathologist [facility] WBC 7.8 4.0 - 10.0 10*3/uL 01/19/2023 7:30 PM PST [facility] RBC 4.39 3.77 - 5.19 10*6/uL 01/19/2023 7:30 PM PST [facility] Hemoglobin 14.2 11.0 - 15.5 g/dL 01/19/2023 7:30 PM PST [facility] Hematocrit 41.9 34.9 - 47.0 % 01/19/2023 7:30 PM PST [facility] MCV 95.4 81.3-101.6 fL fL 01/19/2023 7:30 PM PST [facility] MCH 32.3 26.0 - 34.0 pg 01/19/2023 7:30 PM PST [facility] MCHC 33.9 30.0 - 36.0 g/dL 01/19/2023 7:30 PM PST [facility] RDW-CV 12.8 11.6 - 14.4 % 01/19/2023 7:30 PM PST [facility] RDW-SD 45.0 35.6 - 48.0 fL 01/19/2023 7:30 PM PST [facility] Platelet Count 322 150 - 450 10*3/uL 01/19/2023 7:30 PM PST [facility] MPV 9.3 8.8 - 12.5 fL 01/19/2023 7:30 PM PST [facility] Neutrophils Relative 44 % 01/19/2023 7:30 PM PST [facility] Lymphocytes Relative 47 % 01/19/2023 7:30 PM PST [facility] Monocytes Relative 7 % 01/19/2023 7:30 PM PST [facility] Eosinophils Relative 1 % 01/19/2023 7:30 PM PST [facility] Basophils Relative 1 % 01/19/2023 7:30 PM PST [facility] Immature Granulocytes % 0 % 01/19/2023 7:30 PM PST [facility] Neutrophils Absolute 3.4 1.7 - 6.4 10*3/uL 01/19/2023 7:30 PM PST [facility] Lymphocytes Absolute 3.7(H) 1.0 - 3.5 10*3/uL 01/19/2023 7:30 PM PST [facility] Monocytes Absolute 0.5 0.1 - 0.8 10*3/uL 01/19/2023 7:30 PM PST [facility] Eosinophils Absolute 0.1 0.0 - 0.4 10*3/uL 01/19/2023 7:30 PM PST [facility] Basophils Absolute 0.0 0.0 - 0.2 10*3/uL 01/19/2023 7:30 PM PST [facility] Absolute Immature Granulocytes 0.0 0.0 - 0.2 10*3/uL 01/19/2023 7:30 PM PST [facility] Nucleated RBCS 0.0 <1.0 /100 WBCs 01/19/2023 7:30 PM PST [facility] Blood Venipuncture / Unknown 01/19/2023 7:27 PM PST 01/19/2023 7:27 PM PST Kisha Wu DO LAB BLOOD ORDERABLES F inal Result Performing Organization Address City/State/[facility] Co de Phone Number [facility] [address] [place] [address], documented in this encounter Visit Diagnoses Diagnosis Hypertensive urgency Essential (primary) hypertension Unspecified essential hypertension documented in this encounter Additional Health Concerns Infection Onset Date Last Indicated Resolved Time Respiratory Panel (rule out) 03/26/2023 03/26/2023 03/26/2023 6:38 PM PST Respiratory Panel (rule out) 03/30/2023 03/30/2023 03/30/2023 12:41 PM PST documented as of this encounter Care Teams Novelty Twister Tender Relationship Specialty Start Date End Date Pauly Perales MD [address] [place] [id number] PCP - General Internal Medicine 05/25/24 documented as of this encounter
--- OUTSIDE RECORDS SUMMARY | 2024-09-28 11:17 | XMS_ITS | Encounter Summary ---
Author Organization [employer] Address [address] [place] [address] Phone Care Team Providers Care Lead Loader Name Role Phone Pauly Perales MD Primary Care Provider [phone] Encounter Details Date Type Department Care Team (Latest Contact Info) Description 07/31/2022 Lab Interfaced Orders LAB INTERFACED ORDERS [phone] Urgency of urination; Other difficulties with micturition Social History Tobacco Use Types Packs/Day Years [...] documented as of this encounter Results * (ABNORMAL) Urinalysis with Microscopic (Reflex Culture If Indicated) (08/01/2022 7:48 AM PDT) Color Yellow Yellow, Dark Yellow, Colorless 08/01/2022 9:10 AM PDT [facility] Clarity Cloudy(A) Clear 08/01/2022 9:10 AM PDT [facility] Urine Specific [place] 1.009 1.005 - 1.030 08/01/2022 9:10 AM PDT [facility] Urine pH 6.5 5.0 - 8.0 pH 08/01/2022 9:10 AM PDT [facility] Urine Protein Negative Negative, Trace mg/dL 08/01/2022 9:10 AM PDT [facility] Urine Glucose Negative Negative mg/dL 08/01/2022 9:10 AM PDT [facility] Urine Ketones Negative Negative, Trace (5 mg/dL) mg/dL 08/01/2022 9:10 AM PDT [facility] Urine Bilirubin Negative Negative 9:10 AM PDT [facility] Urobilinogen 0.2 <=1.0 EU/dl 08/01/2022 9:10 AM PDT [facility] Urine Blood Negative Negative 08/01/2022 9:10 AM PDT [facility] Urine Leukocyte Esterase Negative Negative 08/01/2022 9:10 AM PDT [facility] Urine Nitrite Negative Negative 08/01/2022 9:10 AM PDT [facility] Urine RBC 1-2 <3 /hpf 08/01/2022 9:10 AM PDT [facility] Urine WBC 1-5 <6 /hpf 08/01/2022 9:10 AM PDT [facility] Urine Bacteria 2+(A) None Seen /hpf 08/01/2022 9:10 AM PDT [facility] Urine Squamous Epithelial 2+ (4-7/hpf)(A) None Seen /hpf 08/01/2022 9:10 AM PDT [facility] Hyaline Casts 0-3 <4 /lpf 08/01/2022 9:10 AM PDT [facility] Pathological Casts None Seen None Seen /lpf 08/01/2022 9:10 AM PDT [facility] Crystals None Seen None Seen /hpf 08/01/2022 9:10 AM PDT [facility] Sperm, UA None Seen None Seen, NOT PRESENT, Present /hpf 08/01/2022 9:10 AM PDT [facility] Yeast Like Cells None Seen None Seen, NOT PRESENT /hpf 08/01/2022 9:10 AM PDT [facility] Small Round Cells None Seen None Seen, NOT PRESENT, Present /hpf 08/01/2022 9:10 AM PDT [facility] Culture If Indicated Reflex Urine Culture is Indicated 08/01/2022 9:10 AM PDT [facility] Urine Non-blood Collection / Unknown 08/01/2022 7:48 AM PDT 08/01/2022 7:48 AM PDT us Rajeev Warren MD LAB URINE ORDERABLES Final Res ult [facility] [address] [place] [address], documented in this encounter Visit Diagnoses Diagnosis Urgency of urination Other difficulties with micturition documented in this encounter Additional Health Concerns Infection Onset Date Last Indicated Resolved Time Respiratory Panel (rule out) 03/26/2023 03/26/2023 03/26/2023 6:38 PM PST Respiratory Panel (rule out) 03/30/2023 03/30/2023 03/30/2023 12:41 PM PST documented as of this encounter Care Teams Lead Loader Relationship Specialty Start Date End Date Pauly Perales MD [address] [place] [address] PCP - General Internal Medicine 05/25/24 documented as of this encounter
--- OUTSIDE RECORDS SUMMARY | 2024-09-28 11:17 | XMS_ITS | Encounter Summary ---
Author Organization [facility] Address [address] [place] [address] Care Team Providers Care Right Of Way Manager Name Role Phone Rajeev Warren MD Primary Care Provider [phone] Joseph Wright MD Unavailable [phone] Pauly Perales MD Primary Care Provider [phone] Unavailable Unavaila ble Source Comments You are receiving this document because a patient has been referred to you or your facility after avisit at [facility]. The attached Continuity of Care Document (CCD) was sent in order to comply to federal meaningful use standards. The information has been automatically generated from our EHR ([employer]). If you require additional medical records beyond what is included in this CCD, please contactour Release of Information department at [facility] Reason for Visit * Reason Comments Medication Refill Encounter Details Date Type Department Care Team (Late st Contact Info) Description 09/30/2020 Refill PULMONARY DEPARTMENT [address] [place] [address] [phone] Stephie Dennison MD [address] [place], [place] [phone] Social History Tobacco Use Types Packs/Day Years [...] PDT Office Visit ALLERGY & IMMUNOLOGY DEPARTMENT [address] [place] [phone] Tracey Woo MD [address] [place] [phone] ofv 1y f/u Allergic rhinitis, Shot pt 10/08/2024 8:00 AM PDT Office Visit [facility] [address] [place] [address] Ashkan Padron MD [address] [place] [address] 3 month follow up Sinus 10/11/2024 11:15 AM PDT Clinical Support ALLERGY & IMMUNOLOGY DEPARTMENT [address] [place] [phone] Allergy Shot 01/06/2025 8:00 AM PST Office Visit [facility] INTERNAL MEDICINE DEPARTMENT [address] [place] [address] Pauly Perales MD [address] [place] [address] AWV documented as of this encounter Visit Diagnoses Not on filedocumented in this encounter Care Teams Right Of Way Manager Relationship Specialty Start Date End Date Rajeev Warren MD [address] [facility] [address] [place] [address] PCP - General 08/28/12 12/31/23 Pauly Perales MD [address] [place] [address] PCP - General Internal Medicine 01/01/24 Joseph Wright MD [address] [place] [address] [phone] General Surgery 03/28/[address] [place] [phone] Health Education 03/18/24 documented as of this encounter
--- OUTSIDE RECORDS SUMMARY | 2024-09-28 11:17 | XMS_ITS | Encounter Summary ---
Author Organization [employer] Address [address] [place] [address] Phone Care Team Providers Care [employer] Law Clerk Name Role Phone Pauly Perales MD Primary Care Provider [phone] Encounter Details Date Type Department Care Team (Latest Contact Info) Description 04/10/2023 Lab Interfaced Orders LAB INTERFACED ORDERS [phone] Thrombocytosis, unspecified Social History Tobacco Use Types Packs/Day Years Used Date Smoking Tobacco: Never Smokeless Tobacco: Never Alcohol Use Standard Drinks/Week Comments No 0 (1 standard drink = 0.6 oz pur e alcohol) [facility] Utilities Answer Date Recorded In the past 12 months has e electric, gas, oil, or water company [...] as of this encounter Results * (ABNORMAL) CBC with Auto Differential (04/22/2023 1:54 PM PST) WBC 6.9 4.0 - 10.0 10*3/uL 04/22/2023 7:53 PM PST [facility] RBC 3.76(L) 3.77 - 5.19 10*6/uL 04/22/2023 7:53 PM PST [facility] Hemoglobin 11.8 11.0 - 15.5 g/dL 04/22/2023 7:53 PM PST [facility] Hematocrit 36.9 34.9 - 47.0 % 04/22/2023 7:53 PM PST [facility] MCV 98.1 81.3-101. 6 fL fL 04/22/2023 7:53 PM PST [facility] MCH 31.4 26.0 - 34.0 pg 04/22/2023 7:53 PM PST [facility] MCHC 32.0 30.0 - 36.0 g/dL 04/22/2023 7:53 PM PST [facility] RDW-CV 13.3 11.6 - 14.4 % 04/22/2023 7:53 PM PST [facility] RDW-SD 48.1(H) 35.6 - 48.0 fL 04/22/2023 7:53 PM PST [facility] Platelet Count 301 150 - 450 10*3/uL 04/22/2023 7:53 PM PST [facility] Comment:Result reviewed. MPV 9.8 8.8 - 12.5 fL 04/22/2023 7:53 PM PST [facility] Neutrophils Relative 43 % 04/22/2023 7:53 PM PST [facility] Lymphocytes Relative 48 % 04/22/2023 7:53 PM PST [facility] Monocytes Relative 7 % 04/22/2023 7:53 PM PST [facility] Eosinophils Relative 1 % 04/22/2023 7:53 PM PST [facility] Basophils Relative 1 % 04/22/2023 7:53 PM PST [facility] Immature Granulocytes % 0 % 04/22/2023 7:53 PM PST [facility] Neutrophils Absolute 3.0 1.7 - 6.4 10*3/uL 04/22/2023 7:53 PM PST [facility] Lymphocytes Absolute 3.3 1.0 - 3.5 10*3/uL 04/22/2023 7:53 PM PST [facility] Monocytes Absolute 0.5 0.1 - 0.8 10*3/uL 04/22/2023 7:53 PM PST [facility] Eosinophils Absolute 0.1 0.0 - 0.4 10*3/uL 04/22/2023 7:53 PM PST [facility] Basophils Absolute 0.1 0.0 - 0.2 10*3/uL 04/22/2023 7:53 PM PST [facility] Absolute Immature Granulocytes 0.0 0.0 - 0.2 10*3/uL 04/22/2023 7:53 PM PST [facility] Nucleated RBCS 0.0 <1.0 /100 WBCs 04/22/2023 7:53 PM PST [facility] Blood Venipuncture / Unknown 04/22/2023 1:54 PM PST 04/22/2023 1:54 PM PST Meagan Hein PA-C LAB BLOOD ORDERABLES Final Result [facility] [address] [place] [address], documented in this encounter Visit Diagnoses Diagnosis Thrombocytosis, unspecified documented in this encounter Care Teams [employer] Law Clerk Relationship Specialty Start Date End Date Pauly Perales MD [address] [place] [address] PCP - General Internal Medicine 05/25/24 documented as of this encounter
--- OUTSIDE RECORDS SUMMARY | 2024-09-28 11:17 | XMS_ITS | Encounter Summary ---
Author Organization [facility] Address [address] [place] [address] Care Team Providers Care Fish Skinning Machine Feeder Name Role Phone Rajeev Warren MD Primary Care Provider [phone] Joseph Wright MD Unavailable [phone] Pauly Perales MD Primary Care Provider [phone] Unavailable Unavaila ble Source Comments You are receiving this document because a patient has been referred to you or your facility after avisit at [facility]. The attached Continuity of Care Document (CCD) was sent in order to comply to federal meaningful use standards. The information has been automatically generated from our EHR (HowAboutWe). If you require additional medical records beyond what is included in this CCD, please contactour Release of Information department at [facility] Reason for Visit * Reason Comments Medication Refill Encounter Details Date Type Department Care Team (Late st Contact Info) Description 09/27/2020 Refill PULMONARY DEPARTMENT [address] [place] [address] [phone] Stephie Dennison MD [address] [place], [place] [phone] Social History Tobacco Use Types Packs/Day Years [...] PDT Office Visit ALLERGY & IMMUNOLOGY DEPARTMENT [address] [place] [address] Tracey Woo MD [address] [place] [phone] ofv 1y f/u Allergic rhinitis, Shot pt 10/08/2024 8:00 AM PDT Office Visit [facility] [address] [place] [address] Ashkan Padron MD [address] [place] [address] 3 month follow up Sinus 10/11/2024 11:15 AM PDT Clinical Support ALLERGY & IMMUNOLOGY DEPARTMENT [address] [place] [address] Allergy Shot 01/06/2025 8:00 AM PST Office Visit [facility] INTERNAL MEDICINE DEPARTMENT [address] [place] [address] Pauly Perales MD [address] [place] [address] AWV documented as of this encounter Visit Diagnoses Not on filedocumented in this encounter Care Teams Fish Skinning Machine Feeder Relationship Specialty Start Date End Date Rajeev Warren MD [address] [facility] [address] [place] [address] PCP - General 08/28/12 12/31/23 Pauly Perales MD [address] [place] [address] PCP - General Internal Medicine 01/01/24 Joseph Wright MD [address] [place] [address] [phone] General Surgery 03/28/[address] [place] [address] Health Education 03/18/24 documented as of this encounter
--- OUTSIDE RECORDS SUMMARY | 2024-09-28 11:17 | XMS_ITS | Encounter Summary ---
Author Organization [facility] Address [address] [place] [address] Care Team Providers Care Plate Former Name Role Phone Rajeev Warren MD Primary Care Provider [phone] Joseph Wright MD Unavailable [phone] Pauly Perales MD Primary Care Provider [phone] Unavailable Unavaila ble Source Comments You are receiving this document because a patient has been referred to you or your facility after avisit at [facility]. The attached Continuity of Care Document (CCD) was sent in order to comply to federal meaningful use standards. The information has been automatically generated from our EHR (Glow). If you require additional medical records beyond what is included in this CCD, please contactour Release of Information department at [facility] Encounter Details Date Type Department Care Team (Late st Contact Info) Description 05/28/2021 Documentation [facility] at [address] [facility] [address] [place], [place] [phone] Faviola Alcocer Social History Tobacco Use Types Packs/Day Years [...] Office Visit ALLERGY & IMMUNOLOGY DEPARTMENT [address] [place] [address] Tracey Woo MD [address] [place] [address] ofv 1y f/u Allergic rhinitis, Shot pt 10/08/2024 8:00 AM PDT Office Visit [facility] [address] [place] [address] Ashkan Padron MD [address] [place] [address] 3 month follow up Sinus 10/11/2024 11:15 AM PDT Clinical Support ALLERGY & IMMUNOLOGY DEPARTMENT [address] [place] [phone] Allergy Shot 01/06/2025 8:00 AM PST Office Visit [facility] INTERNAL MEDICINE DEPARTMENT [address] [place] [address] Pauly Perales MD [address] [place] [address] AWV documented as of this encounter Visit Diagnoses Not on filedocumented in this encounter Care Teams Plate Former Relationship Specialty Start Date End Date Rajeev Warren MD [address] [address] PCP - General 08/28/12 12/31/23 Pauly Perales MD [address] [place] [address] PCP - General Internal Medicine 01/01/24 Joseph Wright MD [address] [place] [address] [id number] General Surgery 03/28/[address] [place] [address] Health Education 03/18/24 documented as of this encounter
--- OUTSIDE RECORDS SUMMARY | 2024-09-28 11:17 | XMS_ITS | Referral Summary ---
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 30 capsule 11 3 Active [...] Seasonal allergies 08/28/2012 Bipolar II disorder 11/13/2011 Social History Tobacco Use Types Packs/Day Years Used Date Smoking Tobacco: Never Smokeless Tobacco: Never Tobacco Cessation:Counseling Given: Not Answered Personal Safety Answer Date Recorded Getting School Help Needed Not on file 04/22 Comments Unknown Sex and Gender Information Value Date Recorded Sex Assigned at Not on file Legal Sex 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
--- OUTSIDE RECORDS SUMMARY | 2024-09-28 11:17 | XMS_ITS | Encounter Summary ---
Author Organization [facility] Address [address] [place] [address] Care Team Providers Care Terra Cotta Roofer Helper Name Role Phone Rajeev Warren MD Primary Care Provider [phone] Joseph Wright MD Unavailable [phone] Pauly Perales MD Primary Care Provider [phone] Unavailable Unavaila ble Source Comments You are receiving this document because a patient has been referred to you or your facility after avisit at [facility]. The attached Continuity of Care Document (CCD) was sent in order to comply to federal meaningful use standards. The information has been automatically generated from our EHR (Gate2Play). If you require additional medical records beyond what is included in this CCD, please contactour Release of Information department at [facility] Reason for Visit * Reason Comments Medication Refill Encounter Details Date Type Department Care Team (Late st Contact Info) Description 04/17/2021 Refill ALLERGY & IMMUNOLOGY DEPARTMENT [address] [place] [address] [phone] Tracey Woo MD [address] [place] [address] Moderate persistent asthma without complication [...] PDT Office Visit ALLERGY & IMMUNOLOGY DEPARTMENT [address] [place] [address] Tracey Woo MD [address] [place] [address] ofv 1y f/u Allergic rhinitis, Shot pt 10/08/2024 8:00 AM PDT Office Visit [facility] [address] [place] [address] Ashkan Padron MD [address] [place] [address] 3 month follow up Sinus 10/11/2024 11:15 AM PDT Clinical Support ALLERGY & IMMUNOLOGY DEPARTMENT [address] [place] [address] Allergy Shot 01/06/2025 8:00 AM PST Office Visit [facility] INTERNAL MEDICINE DEPARTMENT [address] [place] [address] Pauly Perales MD [address] [place] [address] AWV documented as of this encounter Visit Diagnoses Diagnosis Moderate persistent asthma without complication Unspecified asthma documented in this encounter Care Teams Terra Cotta Roofer Helper Relationship Specialty Start Date End Date Rajeev Warren MD [address] [facility] [address] [place] [address] PCP - General 08/28/12 12/31/23 Pauly Perales MD [address] [place] [address] PCP - General Internal Medicine 01/01/24 Joseph Wright MD [address] [place] [address] General Surgery 03/28/[address] [place] [address] Health Education 03/18/24 documented as of this encounter
--- OUTSIDE RECORDS SUMMARY | 2024-09-28 11:17 | XMS_ITS | Referral Summary ---
Author Organization [facility] Address [address] [place] [address] Care Team Providers Care Drywaller Name Role Phone Joseph Wright MD Unavailable [phone] Pauly Perales MD Primary Care Provider Lisette Dockery RD Unavailable Unavaila ble Encounters * This document contains information received from the source organization and may not represent a complete record from that organization. Date Type Department Care Team Description 09/13/2024 9:15 AM PDT Clinical Support ALLERGY & IMMUNOLOGY DEPARTMENT [address] [place] [id number] Allergic rhinitis due to dust mite (Primary Dx); Allergic rhinitis due to animal (cat) (dog) hair and dander; Allergic rhinitis due to mold 09/02/2024 9:45 AM PDT Clinical Support [facility]ERGY & IMMUNOLOGY DEPARTMENT [address] [place] [phone] Allergic rhinitis due to dust mite (Primary Dx); Allergic rhinitis due to animal (cat) (dog) hair and dander; Allergic rhinitis due to mold 08/20/2024 Refill [facility]OLOG[facility] DEPARTMENT [address] [place] [phone] Tracey Woo MD Chronic seasonal allergic rhinitis due to pollen 08/19/2024 9:00 AM PDT Clinical Support [facility]GY & IMMUNOLOGY DEPARTMENT [address] [place] [phone] Allergic rhinitis due to dust mite (Primary Dx); Allergic rhinitis due to animal (cat) (dog) hair and dander; Allergic rhinitis due to mold 07/28/2024 Refill [facility] INTERNAL MEDICINE DEPARTMENT [address] [place] [phone] Pauly Perales MD Class 1 obesity without serious comorbidity with body mass index (BMI) of 30.0 to 30.9 in adult, unspecified obesity type; Mild obstructive sleep apnea 07/16/2024 Refill [facility] IMMUNOLOGY DEPARTMENT [address] [place] [phone] Tracey Woo MD Moderate persistent asthma without complication 07/14/2024 Refill [facility] DEPARTMENT [address] [place] [phone] Tracey Woo MD Moderate persistent asthma without complication 07/11/2024 Refill [facility] DE[facility] [address] [place] [address] Tracey Woo MD 07/08/2024 9:15 AM PDT Clinical Support [facility] IMMUNOLOGY DEPARTMENT [address] [place] [phone] Allergic rhinitis due to dust mite (Primary Dx); Allergic rhinitis due to animal (cat) (dog) hair and dander; Allergic rhinitis due to mold 07/05/2024 8:30 AM PDT Initial Consult [facility] [address] [place] [phone] Ashkan Padron MD Chronic nasopharyngitis (Primary Dx); History of migraine; Asymmetrical sensorineural hearing loss; Mild obstructive sleep apnea; History of asthma; Chronic ethmoidal sinusitis; Dizziness; Chronic nasal congestion; Laryngopharyngeal reflux; Chronic insomnia; History of bipolar disorder; Sinus pain; Dry mouth from Last 3 Months Allergies No known active allergies Medications * This document contains information received from the source organization and may not represent a complete record from that organization. AIMOVIG 140 MG/ML SOAJ 07/20/19 Active Onabotulinumtoxin A (BOTOX IJ) Inject as directed Every 3 months Active metoclopramide (REGLAN) 10 MG tablet Take 1 tablet (10 mg total) by mouth 02/19/20 23 Active NURTEC 75 MG TBDP Take 1 tablet daily as needed by mouth 08/21/19 23 Active ondansetron (ZOFRAN-ODT) 4 MG disintegrating tablet Take 1 tablet (4 mg total) as needed by mouth for Nausea 04/01/19 24 Active loratadine (CLARITIN) 10 MG tablet Take 1 tablet (10 mg total) once daily by mouth Active olopatadine (PATANOL) 0.1 % ophthalmic solution INSTILL ONE DROP TO BOTH EYES TWO TIMES A DAY NEEDED FOR ALLERGIES 5 mL 8 09/30/19 24 Active frovatriptan (FROVA) 2.5 MG tablet TAKE 1 TO 2 TABLETS BY MOUTH AT ONSET OF MIGRAINE; MAY REPEAT 1 TABLET IN 24 HOURS IF NEEDED. 9 tablet 12/08/19 24 Active levothyroxine (SYNTHROID) 75 MCG tabletIndications :Acquired hypothyroidism Take 1 tablet (75 mcg total) once daily by mouth 90 tablet 3 01/01/20 24 Active liothyronine (CYTOMEL) 5 MCG tabletIndications :Acquired hypothyroidism Take 0.5 tablets (2.5 mcg total) two times daily by mouth 90 tablet 3 01/01/20 24 Active lisinopril (ZESTRIL) 10 MG tabletIndications :Primary hypertension Take 1 tablet (10 mg total) once daily by mouth 90 tablet 3 01/01/20 24 Active meloxicam (MOBIC) 15 MG tablet Take 1 tablet (15 mg total) once daily by mouth 90 tablet 3 01/01/20 24 Active Albuterol Sulfate HFA 108 (90 Base) MCG/ACT Inhalation Aerosol Solution Inhale 2 puffs every 4 (four) hours as needed into the lungs for Wheezing 18 g 01/05/20 24 Active ADDERALL XR, 20MG, 20 MG 24 hr capsule Take 1 capsule (20 mg total) every morning by mouth 30 capsule 01/29/20 24 025 Active G-Sekzkyqpogdp-Ip gae (DEPLIN 15) 15-90.314 MG CAPS Take 1 capsule once daily by mouth 90 capsule 3 03/17/19 25 Active BREO ELLIPTA 200-25 MCG/ACT AEPB INHALE 1 DOSE BY MOUTH DAILY 180 each 1 04/06/19 25 Active lorazepam (ATIVAN) 0.5 MG tablet TAKE 1 TABLET BY MOUTH EVERY NIGHT AT BEDTIME NEEDED FOR SLEEP 10 tablet 05/25/19 25 Active trazodone (DESYREL) 50 MG tablet TAKE ONE TABLET BY MOUTH ONCE NIGHTLY 90 tablet 1 05/25/19 25 Active meclizine (ANTIVERT) 25 MG tabletIndications :Dizziness Take 1 tablet (25 mg total) 3 times daily as needed by mouth for Dizziness or Nausea 30 tablet 1 06/27/19 25 026 Active famotidine (PEPCID) 20 MG tablet Take 1 tablet (20 mg total) every evening by mouth 90 tablet 4 07/06/19 25 026 Active fluticasone (FLONASE) 50 MCG/ACT nasal spray 2 sprays once daily by Nasal route 48 g 5 07/06/19 25 026 Active clindamycin (CLEOCIN) 300 MG capsule Take 1 capsule (300 mg total) three times daily by mouth for 10 days 30 capsule 07/08/19 25 Active SPIRIVA RESPIMAT 1.25 MCG/ACT AERS INHALE 2 PUFFS ONCE DAILY INTO THE LUNGS 12 g 1 07/13/19 25 Active paroxetine (PAXIL) 20 MG tablet TAKE 1 TABLET BY MOUTH EVERY MORNING 90 tablet 1 07/15/19 25 Active montelukast (SINGULAIR) 10 MG tabletIndications :Moderate persistent asthma without complication TAKE ONE TABLET BY MOUTH ONCE NIGHTLY 30 tablet 9 07/17/19 25 Active Tirzepatide-Weigh t Management (ZEPBOUND) 5 MG/0.5ML SOLNIndications:C lass 1 obesity without serious comorbidity with body mass index (BMI) of 30.0 to 30.9 in adult, unspecified obesity type,Mild obstructive sleep apnea INJECT 0.5 ML (5 MG) UNDER THE SKIN ONCE WEEKLY (0.5ML= 50 UNITS) 2 mL 2 07/29/19 25 Active Azelastine HCl 137 MCG/SPRAY SOLNIndications:C hronic seasonal allergic rhinitis due to pollen SPRAY 2 SPRAYS IN EACH NOSTRIL TWICE DAILY DIRECTED 90 mL 08/21/19 25 Active divalproex (DEPAKOTE) 125 MG EC tablet TAKE 1 TABLET BY MOUTH 2 TIMES A DAY 60 tablet 4 08/21/19 25 Active temazepam (RESTORIL) 15 MG capsule TAKE UP TO 4 CAPSULES BY MOUTH DAILY 120 capsule 3 08/21/19 25 Active lamotrigine (LAMICTAL) 150 MG tablet TAKE 1 AND 1/2 TABLET BY MOUTH EVERY NIGHT AT BEDTIME PLEASE CALL MD RIGHT AWAY IF YOU DEVELOP EITHER RASH, FEVER OR EYE/MOUTH LESIONS 135 tablet 1 09/07/19 25 Active lamotrigine (LAMICTAL) 150 MG tablet TAKE 1 AND 1/2 TABLET BY MOUTH EVERY NIGHT AT BEDTIME PLEASE CALL MD RIGHT AWAY IF YOU DEVELOP EITHER RASH, FEVER OR EYE/MOUTH LESIONS 135 tablet 1 04/06/19 25 025 Discontinued Active Problems Problem Noted Date Diagnosed Date Hypertension 01/21/2023 Mixed hyperlipidemia 08/16/2021 Mammogram declined 03/31/2017 TAMARA (obstructive sleep apnea) 02/07/2017 Overview (08/18/2017): Polysomnogram demonstrates mild obstructive sleep apnea with [...] of 0.75. Insurance did not authorize treatment. Fatigue 12/13/2016 Chronic insomnia 12/13/2016 Moderate persistent asthma without complication 12/13/2016 Indigestion 12/13/2016 Hypothyroidism 08/28/2012 Migraine with aura and witho ut status migrainosus, not intractable 08/28/2012 Overview (08/16/2021): Follows with Dr Enriquez Seasonal allergies 08/28/2012 Bipolar 1 disorder Overview (03/13/2020): Followed by Dr Flores Resolved Problems Problem Noted Date Diagnosed Date Resolved Date Current use of estrogen therapy 02/10/2019 01/01/2024 Overview (02/10/2019): unopposed estrogen which she take for suicidal ideations. Is prescribed by [facility] in [place]. She feels the benefits out way the risks. Healthcare maintenance 02/04/201812/31 Overview (08/16/2021): Female Health Maintenance Pap Testing: Q3 years from age 20. Age 29, may switch to every 5 years with HPV screening. November 24 2020 she was told she does not need one for 5 years Breast Cancer Screening >50 or earlier 05/2021 Colon Cancer Screening 01/2017 due in 2026 Osteoporosis Screen >65yo or with risk factors She continues to have periods. Immunizations: - Zoster (shingles): 60 yo [yes both] - Pneumococcal Vaccine: 64 yo [2018] - Tdap (once then Td Q10 years): [2018] - HPV vaccine [na] - COVID-19 vaccine [moderna] booster moderna 2nd booster moderna Immunizations Immunization Administration Dates Next Due Flu Quadrivalent Injectable Mdck Pfree 7 Flu Vaccine (Historical entry) 01/19/2018,2016 Flu Vaccine (Mychart) 11/30/2020,11/16/2019 Flu Vaccine >= to 18 YO Preservative Free IM (Tr i) 10/24/2023 Flu Vaccine >= to 6MO Preservative Free IM (Quad ) 10/15/2018 Influenza, Recomb, Quad, Inject, P Free 10/28/19 23 Influenza, Unspecified Formulation (CAIR) 2014 Pneumococcal Conjugate Vaccine 20-valent (PCV20) 08/16/2021 Pneumococcal Polysaccharide 02/04/2018 Tdap 01/19/2018 Zoster (Shingrix, inactivated virus) 08/31/2020, 06/29/2020 Social History Tobacco Use Types Packs/Day Years [...] file Not on file Not on file Last Filed Vital Signs Vital Sign Reading Time Taken Comments Blood Pressure 98/66 06/26/2024 12:24 PM PDT Pulse 85 06/26/2024 12:24 PM PDT Temperature 37 C (98.6 F) 06/26/2024 12:24 PM PDT Respiratory Rate 16 06/26/2024 12:24 PM PDT Oxygen Saturation 99% 06/26/2024 12:24 PM PDT Inhaled Oxygen Concentration - - Weight 71.7 kg (158 lb) 06/26/2024 12:24 PM PDT Height 172.7 cm (5' 8) 06/26/2024 12:24 PM PDT Body Mass Index 24.02 06/26/2024 12:24 PM PDT Plan of Treatment Upcoming Encounters Date Type Department Care Team (Late st Contact Info) Description 10/07/2024 10:30 AM PDT Office Visit ALLERGY & IMMUNOLOGY DEPARTMENT [address] [place] [phone] Tracey Woo MD [address] [place] [address] ofv 1y f/u Allergic rhinitis, Shot pt 10/08/2024 8:00 AM PDT Office Visit [facility] [address] [place] [phone] Ashkan Padron MD [address] [place] [address] 3 month follow up Sinus 10/11/2024 11:15 AM PDT Clinical Support ALLERGY & IMMUNOLOGY DEPARTMENT [address] [place] [address] Allergy Shot 01/06/2025 8:00 AM PST Office Visit [facility] INTERNAL MEDICINE DEPARTMENT [address] [place] [phone] Pauly Perales MD [address] [place] [address] AWV Procedures Procedure Name Priority Date/Time Associated Diagnosis Comments RESPIRATORY CULTURE Routine 07/05/2024 8 :30 AM PDT Chronic nasopharyngitis NAGA DIAG LEFT Routine 06/22/2021 9:18 AM PDT Abnormal finding on breast imaging HM PAP SMEAR Routine 11/24/2020 COLONOSCOPY 01/29/2017 1:52 PM PST from Last 3 Months or Most Recently Relevant to Health Maintenance Results * RESPIRATORY CULTURE (07/05/2024 8:30 AM PDT) CULTURE NO STAPHYLOCOCCUS AUREUS ISOLATED. 07/07/2024 9:31 AM PDT [facility] Comment:No Staphylococcus au reus isolated CULTURE USUAL RESPIRATORY JUSTIN 07/07/2024 9:31 AM PDT [facility] Comment:Moderate Usual Respi ratory Justin GRAM SMEAR Not Applicable 07/07/2024 9:31 AM PDT [facility] Nasopharyngeal (Nasopharynx/Orophary nx) 07/05/2024 8:30 AM PDT 07/05/2024 11:47 AM PDT us Ashkan Padron MD MICROBIOLOGY - GENERAL ORDERA BLES Final Result [facility] [address] [place] [address] [facility] [address] [place] [address] * NAGA DIAG LEFT (06/22/2021 9:18 AM PDT) ASSESSMENT A1 SYSTEMS RIS RECOMMENDATION R0 SYSTEMS RIS Anatomical Region Laterality Modality Breast Mammography 06/22/2021 9:18 AM PDT Narrative 06/22/2021 10:56 AM PDT PROCEDURE: DIAGNOSTIC MAMMOGRAM WITH TOMOSYNTHESIS; LEFT INDICATIONS: LEFT NAGA ADD VIEWS COMPARISON: Foundation, US, US BREAST LEFT, 06/22/2021, 10:03. Foundation, , NAGA SCREENING, 03/22/2021, 16:32. TECHNIQUE: Digital breast tomosynthesis was performed with reconstructed 2D mammograms. BREAST COMPOSITION: FINDINGS: Additional mammographic and tomosynthesis views show no suspicious microcalcifications, architectural distortion or dominant mass. Previously visualized asymmetry does not persist on spot tomosynthesis views and was most likely due to overlapping normal tissues. Focused ultrasound of the upper outer left breast demonstrates dense normal breast tissue. No mass. Focused ultrasound of the left axilla demonstrates no lymphadenopathy. CONCLUSION: BI-RADS 1: NEGATIVE RECOMMENDATIONS: Annual mammogram and clinical exam in 12 months. Lifetime Risk of Breast Cancer (Based on Agnes Model Risk Assessment Tool): 6.30% PLEASE NOTE: A NORMAL MAMMOGRAM DOES NOT EXCLUDE THE POSSIBILITY OF BREAST CANCER. A CLINICALLY SUSPICIOUS PALPABLE LUMP SHOULD BE BIOPSIED. Dictated by: Bennett Jason MD on 06/22/2021 at 10:40 Electronically Authenticated by: Bennett Jason MD on 06/22/2021 at 10:56 copy to: Procedure Note Bennett Jason MD - 06/22/2021 PROCEDURE:DIAGNOSTIC MAMMOGRAM WITH TOMOSYNTHESIS; LEFT INDICATIONS:LEFT NAGA ADD VIEWS COMPARISON:Foundation, US, US BREAST LEFT, 06/22/2021, 10:03. Foundation, MG, NAGA SCREENING, 03/22/2021, 16:32. TECHNIQUE:Digital breast tomosynthesis was performed with [id number] mammograms. BREAST COMPOSITION: FINDINGS: Additional mammographic and tomosynthesis views show no suspiciousmicrocalcifications, architectural distortion or dominant mass.Previously visualized asymmetry does not persist on spot tomosynthesisviews and was most likely due to overlapping normal tissues. Focused ultrasound of the upper outer left breast demonstrates densenormal breast tissue. No mass. Focused ultrasound of the left axilla demonstrates no lymphadenopathy. CONCLUSION: BI-RADS 1: NEGATIVE RECOMMENDATIONS: Annual mammogram and clinical exam in 12 months. Lifetime Risk of Breast Cancer (Based on Agnes Model Risk Assessment Tool):6.30% PLEASE NOTE: A NORMAL MAMMOGRAM DOES NOT EXCLUDE THE POSSIBILITY OFBREAST CANCER. A CLINICALLY SUSPICIOUS PALPABLE LUMP SHOULD BE BIOPSIED. Dictated by: Bennett Jason MD on 06/22/2021 at 10:40 Electronically Authenticated by: Bennett Jason MD on 06/22/2021 at 10:56 copy to: Rajeev Warren MD IM MAMMOGRAPHY ORDERABLES Final Result * HM PAP SMEAR (11/24/2020) HM PAP normal [facility] DRAKE POC Comment:[facility] in [place] she d oes not want to give her name us Historical Provider HEALTH MAINTENANCE Final Result [facility] POC [address] [place] [address], [facility] [phone] * COLONOSCOPY (01/29/2017 1:52 PM PST) 01/29/2017 1:52 PM PST Narrative [facility] - 01/29/2017 1:53 PM PST Indications: Iron deficiency anemia (280.9). Consent: The benefits, risks, and alternatives to the procedure were discussed and informed consent was obtained from the patient. A time-out was taken prior to procedure. Preparation: EKG, pulse, pulse oximetry, and blood pressure were monitored throughout the procedure. The patient was kept NPO. Medications: Versed 1 mg IV before the procedure. Demerol 25 mg IV before the procedure. Patient previously medicated. Rectal Exam: Small external hemorrhoids. Normal sphincter tone. Procedure: The colonoscope was passed through the anus under direct visualization and was advanced with ease to the terminal ileum. The scope was withdrawn and the mucosa was carefully examined. The quality of the preparation was good. The views were good. The patient's toleration of the procedure was good. Retroflexion was performed in the rectum. Findings: Small internal hemorrhoids were found. Otherwise, the colon appeared to be normal. Unplanned Events: There were no unplanned events. Estimated Blood Loss: Insignificant. Summary: Small external hemorrhoids were found (455.3). Internal hemorrhoids found (455.0). Otherwise normal colon. Recommendations: Resume regular diet as tolerated. Follow-up appointment in attending physician's office. Colonoscopy recommended in 10 years. Procedure Codes: [97582]Colonoscopy Version 1, electronically signed by Dr. YANICK [place] M.D. on 01/29/2017 at 01:52 PM. Procedure Note Yanick Solitario MD - 01/29/2017 Indications: Iron deficiency anemia (280.9). Consent: The benefits, risks, and alternatives to the procedure were discussed and informed consent was obtained from the patient. A time-out was taken prior to procedure. Preparation: EKG, pulse, pulse oximetry, and blood pressure were monitored throughout the procedure. The patient was kept NPO. Medications: Versed 1 mg IV before the procedure. Demerol 25 mg IV before the procedure. Patient previously medicated. Rectal Exam: Small external hemorrhoids. Normal sphincter tone. Procedure: The colonoscope was passed through the anus under direct visualization and was advanced with ease to the terminal ileum. The scope was withdrawn and the mucosa was carefully examined. The quality of the preparation was good. The views were good. The patient's toleration of the procedure was good. Retroflexion was performed in the rectum. Findings: Small internal hemorrhoids were found. Otherwise, the colon appeared to be normal. Unplanned Events: There were no unplanned events. Estimated Blood Loss: Insignificant. Summary: Small external hemorrhoids were found (455.3). Internal hemorrhoids found (455.0). Otherwise normal colon. Recommendations: Resume regular diet as tolerated. Follow-up appointment in attending physician's office. Colonoscopy recommended in 10 years. Procedure Codes: [24418]Colonoscopy Version 1, electronically signed by Dr. YANICK [place] M.D. on 01/29/2017 at 01:52 PM. Yanick Solitario MD GI PROCEDURE ORDERABLES Final Result [facility] - MEDICITY from Last 3 Months or Most Recently Relevant to Health Maintenance Insurance MEDICARE GENERIC COMMERCIAL Care Teams Drywaller Relationship Specialty Start Date End Date Pauly Perales MD [address] [place] [phone] PCP - General Internal Medicine 01/01/24 Joseph Wright MD [address] [place] [phone] General Surgery 03/28/[address] [place] [phone] Health Education 03/18/24
--- OUTSIDE RECORDS SUMMARY | 2024-09-28 11:17 | XMS_ITS | Encounter Summary ---
Author Organization [facility] Address [address] [place] [address] Phone Care Team Providers Care Mechanical Equipment Test Engineer Name Role Phone Pauly Perales MD Primary Care Provider [phone] Encounter Details Date Type Department Care Team (Latest Contact Info) Description 07/05/2024 Lab Interfaced Orders LAB INTERFACED ORDERS [phone] Chronic nasopharyngitis Social History Tobacco Use Types Packs/Day Years Used Date Smoking Tobacco: Never Smokeless Tobacco: Never Alcohol Use Standard Drinks/Week Comments No 0 (1 standard drink = 0.6 oz pur e alcohol) [facility] Utilities Answer Date Recorded In the [...] documented as of this encounter Results * Respiratory Cult and Gram stain, [...] PDT Ashkan Padron MD LAB MICROBIOLOGY - [facility] MANISH JEFFREY Final Result Performing Organization Address City/State/[facility] Co de Phone Number [facility] [address] [place] [address], documented in this encounter Visit Diagnoses Diagnosis Chronic nasopharyngitis documented in this encounter Care Teams Mechanical Equipment Test Engineer Relationship Specialty Start Date End Date Pauly Perales MD [address] [place] [address] PCP - General Internal Medicine 05/25/24 documented as of this encounter
--- OUTSIDE RECORDS SUMMARY | 2024-09-28 11:17 | XMS_ITS | Encounter Summary ---
Author Organization [facility] Address [address] [place] [address] Phone Care Team Providers Care Lab Technologist Name Role Phone Pauly Perales MD Primary Care Provider [phone] Encounter Details Date Type Department Care Team (Latest Contact Info) Description 04/09/2023 Lab Interfaced Orders LAB INTERFACED ORDERS [phone] Sepsis, unspecified organism; Severe sepsis with septic shock (CODE) Social History Tobacco Use Types Packs/Day Years Used Date Smoking Tobacco: Never Smokeless Tobacco: Never Alcohol Use Standard Drinks/Week Comments No 0 (1 standard drink = 0.6 oz pur e alcohol) [facility] Utilities Answer Date Recorded In the [...] documented as of this encounter Results * Comprehensive Metabolic Panel (04/09/2023 4:26 PM PST) Sodium 137 134 - 145 mmol/L 04/09/2023 7:51 PM PST [facility] Potassium 5.1 3.5 - 5.1 mmol/L 04/09/2023 7:51 PM PST [facility] Chloride 103 98 - 110 mmol/L 04/09/2023 7:51 PM PST [facility] CO2 28 21 - 32 mmol/L 04/09/2023 7:51 PM PST [facility] Anion Gap 6 3 - 14 mmol/L 04/09/2023 7:51 PM PST [facility] Blood Urea Nitrogen (BUN) 8 7 - 24 mg/dL 04/09/2023 7:51 PM PST [facility] Creatinine 0.65 0.55 - 1.02 mg/dL 04/09/2023 7:51 PM PST [facility] eGFR 102 >60 mL/min/1.7 3m2 04/09/2023 7:51 PM PST [facility] BUN/Creatinine Ratio 12.3 7.0 - 28.0 04/09/2023 7:51 PM PST [facility] Calcium 9.8 8.2 - 10.2 mg/dL 04/09/2023 7:51 PM PST [facility] Total Protein 7.8 6.4 - 8.2 g/dL 04/09/2023 7:51 PM PST [facility] Albumin 4.0 3.4 - 5.0 g/dL 04/09/2023 7:51 PM PST [facility] Globulin 3.8 2.0 - 4.1 g/dL 04/09/2023 7:51 PM PST [facility] Albumin/Globulin Ratio 1.1 0.9 - 1.8 04/09/2023 7:51 PM PST [facility] Total Bilirubin 0.2 0.2 - 1.0 mg/dL 04/09/2023 7:51 PM PST [facility] Comment:Use of this assay is not recommended for patients undergoing treatment with Eltrombopag due to the potential for falsely elevated results. AST (SGOT) 32 <39 U/L 04/09/2023 7:51 PM PST [facility] ALT (SGPT) 04/09/2023 7:51 PM PST [facility] Comment:Test not performed d ue to reagent shortage. If there is a critical need for ALT testing, please call the laboratory. Alkaline Phosphatase 98 37 - 128 U/L 04/09/2023 7:51 PM PST [facility] Fasting 8 hours or more? No 04/09/2023 7:51 PM PST [facility] Glucose 90 75 - 140 mg/dL 04/09/2023 7:51 PM PST [facility] Comment: Normal fasting, 75-99 mg/dL Impaired fasting, 100-125 mg/dL Provisional diabetic, fasting over 125 mg/dL Non fasting, 75-140 mg/dL Blood Venipuncture / Unknown 04/09/2023 4:26 PM PST 04/09/2023 4:26 PM PST Meagan Hein PA-C LAB BLOOD ORDERABLES Final Result [facility] [address] [place] [address], * (ABNORMAL) CBC with Auto Differential (04/09/2023 4:26 PM PST) WBC 5.9 4.0 - 10.0 10*3/uL 04/09/2023 8:44 PM PST [facility] RBC 4.03 3.77 - 5.19 10*6/uL 04/09/2023 8:44 PM PST [facility] Hemoglobin 12.6 11.0 - 15.5 g/dL 04/09/2023 8:44 PM PST [facility] Hematocrit 38.9 34.9 - 47.0 % 04/09/2023 8:44 PM PST [facility] MCV 96.5 81.3-101.6 fL fL 04/09/2023 8:44 PM PST [facility] MCH 31.3 26.0 - 34.0 pg 04/09/2023 8:44 PM PST [facility] MCHC 32.4 30.0 - 36.0 g/dL 04/09/2023 8:44 PM PST [facility] RDW-CV 12.8 11.6 - 14.4 % 04/09/2023 8:44 PM PST [facility] RDW-SD 45.9 35.6 - 48.0 fL 04/09/2023 8:44 PM PST [facility] Platelet Count 808(H) 150 - 450 10*3/uL 04/09/2023 8:44 PM PST [facility] Comment:Results verified by repeat analysis. MPV 9.3 8.8 - 12.5 fL 04/09/2023 8:44 PM PST [facility] Neutrophils Relative 31 % 04/09/2023 8:44 PM PST [facility] Lymphocytes Relative 58 % 04/09/2023 8:44 PM PST [facility] Monocytes Relative 9 % 04/09/2023 8:44 PM PST [facility] Eosinophils Relative 1 % 04/09/2023 8:44 PM PST [facility] Basophils Relative 1 % 04/09/2023 8:44 PM PST [facility] Immature Granulocytes % 0 % 04/09/2023 8:44 PM PST [facility] Neutrophils Absolute 1.8 1.7 - 6.4 10*3/uL 04/09/2023 8:44 PM PST [facility] Lymphocytes Absolute 3.4 1.0 - 3.5 10*3/uL 04/09/2023 8:44 PM PST [facility] Monocytes Absolute 0.5 0.1 - 0.8 10*3/uL 04/09/2023 8:44 PM PST [facility] Eosinophils Absolute 0.1 0.0 - 0.4 10*3/uL 04/09/2023 8:44 PM PST [facility] Basophils Absolute 0.1 0.0 - 0.2 10*3/uL 04/09/2023 8:44 PM PST [facility] Absolute Immature Granulocytes 0.0 0.0 - 0.2 10*3/uL 04/09/2023 8:44 PM PST [facility] Nucleated RBCS 0.0 <1.0 /100 WBCs 04/09/2023 8:44 PM PST [facility] Blood Venipuncture / Unknown 04/09/2023 4:26 PM PST 04/09/2023 4:26 PM PST Meagan Hein PA-C LAB BLOOD ORDERABLES Final Result [facility] [address] [place] [address], documented in this encounter Visit Diagnoses Diagnosis Sepsis, unspecified organism Severe sepsis with septic shock (CODE) documented in this encounter Care Teams Lab Technologist Relationship Specialty Start Date End Date Pauly Perales MD [address] [place] [address] PCP - General Internal Medicine 05/25/24 documented as of this encounter
--- OUTSIDE RECORDS SUMMARY | 2024-09-28 11:17 | XMS_ITS | Encounter Summary ---
Author Organization [facility] Address [address] [place] [address] Phone Care Team Providers Care Blood Bank Credit Clerk Name Role Phone Pauly Perales MD Primary Care Provider [phone] Encounter Details Date Type Department Care Team (Late st Contact Info) Description 01/20/2022 Virtual Visit [facility] Virtual Care [address] [place] [phone] Aaron Hamm [address] [place] [address] Acute upper respiratory infection, unspecified Social History Tobacco Use Types Packs/Day [...] as of this encounter Visit Diagnoses Diagnosis Acute upper respiratory infection, unspecified documented in this encounter Additional Health Concerns Infection Onset Date Last Indicated Resolved Time Respiratory Panel (rule out) 03/26/2023 03/26/2023 03/26/2023 6:38 PM PST Respiratory Panel (rule out) 03/30/2023 03/30/2023 03/30/2023 12:41 PM PST documented as of this encounter Care Teams Blood Bank Credit Clerk Relationship Specialty Start Date End Date Pauly Perales MD [address] [place] [address] PCP - General Internal Medicine 05/25/24 documented as of this encounter
--- OUTSIDE RECORDS SUMMARY | 2024-09-28 11:17 | XMS_ITS | Encounter Summary ---
Author Organization [facility] Address [address] [place] [address] Care Team Providers Care Oracle Software Engineer Name Role Phone Joseph Wright MD Unavailable [phone] Pauly Perales MD Primary Care Provider Lisette Dockery RD Unavailable Unavaila ble Source Comments You are receiving this document because a patient has been referred to you or your facility after avisit at [facility]. The attached Continuity of Care Document (CCD) was sent in order to comply to federal meaningful use standards. The information has been automatically generated from our EHR ([employer]). If you require additional medical records beyond what is included in this CCD, please contactour Release of Information department at [facility] Reason for Visit * Reason Comments Medication Refill Encounter Details Date Type Department Care Team (Late st Contact Info) Description 07/14/2024 Refill [facility]ERGY & IMMUNOLOGY DEPARTMENT [address] [place] [address] Tracey Woo MD [address] [place], [place] [phone] Moderate persistent asthma without complication Social History [...] Office Visit [facility]MENT [address] [place] [address] Tracey Woo MD [address] [place] [address] ofv 1y f/u Allergic rhinitis, Shot pt 10/08/2024 8:00 AM PDT Office Visit [facility] [address] [place] [address] Ashkan Padron MD [address] [place] [address] [place] [address] 3 month follow up Sinus 10/11/2024 11:15 AM PDT Clinical Support [facility]GY & IMMUNOLOGY DEPARTMENT [address] [place] [address] Allergy Shot 01/06/2025 8:00 AM PST Office Visit [facility] INTERNAL MEDICINE DEPARTMENT [address] [place] [address] Pauly Perales MD [address] [place] [address] AWV documented as of this encounter Visit Diagnoses Diagnosis Moderate persistent asthma without complication Unspecified asthma documented in this encounter Care Teams Oracle Software Engineer Relationship Specialty Start Date End Date Pauly Perales MD [address] [place] [address] PCP - General Internal Medicine 01/01/24 Joseph Wright MD [address] [place] [address] General Surgery 03/28/[address] [place] [address] Health Education 03/18/24 documented as of this encounter
--- OUTSIDE RECORDS SUMMARY | 2024-09-28 11:17 | XMS_ITS | Encounter Summary ---
Author Organization [facility] Address [address] [place] [address] Phone Care Team Providers Care Transfer Man Name Role Phone Pauly Perales MD Primary Care Provider [phone] Encounter Details Date Type Department Care Team (Late st Contact Info) Description 01/20/[address] [facility] Virtual Care [address] [place] [phone] Aaron Hamm [address] [place] [address] Social History Tobacco Use Types Packs/Day Years [...] Diagnoses Not on filedocumented in this encounter Additional Health Concerns Infection Onset Date Last Indicated Resolved Time Respiratory Panel (rule out) 03/26/2023 03/26/2023 03/26/2023 6:38 PM PST Respiratory Panel (rule out) 03/30/2023 03/30/2023 03/30/2023 12:41 PM PST documented as of this encounter Care Teams Transfer Man Relationship Specialty Start Date End Date Pauly Perales MD [address] [place] [address] PCP - General Internal Medicine 05/25/24 documented as of this encounter
--- OUTSIDE RECORDS SUMMARY | 2024-09-28 11:17 | XMS_ITS | Encounter Summary ---
Author Organization [facility] Address [address] [place] [address] Care Team Providers Care Product Safety Technical Assistant Name Role Phone Rajeev Warren MD Primary Care Provider [phone] Joseph Wright MD Unavailable [phone] Pauly Perales MD Primary Care Provider [phone] Unavailable Unavaila ble Source Comments You are receiving this document because a patient has been referred to you or your facility after avisit at [facility]. The attached Continuity of Care Document (CCD) was sent in order to comply to federal meaningful use standards. The information has been automatically generated from our EHR ([email or web address]). If you require additional medical records beyond what is included in this CCD, please contactour Release of Information department at [facility] Reason for Visit * Reason Comments Medication Refill Encounter Details Date Type Department Care Team (Late st Contact Info) Description 09/25/2020 Refill PULMONARY DEPARTMENT [address] [place] [address] [phone] Stephie Dennison MD [address] [place], [place] [phone] Social History Tobacco Use Types Packs/Day Years [...] PDT Office Visit [facility] & IMM[facility]OLOGY DEPARTMENT [address] [place] [address] Tracey Woo MD [address] [place] [address] ofv 1y f/u Allergic rhinitis, Shot pt 10/08/2024 8:00 AM PDT Office Visit [facility] [address] [place] [address] Ashkan Padron MD [address] [place] [address] 3 month follow up Sinus 10/11/2024 11:15 AM PDT Clinical Support ALLERGY & IMMUNOLOGY DEPARTMENT [address] [place] [address] Allergy Shot 01/06/2025 8:00 AM PST Office Visit [facility] INTERNAL MEDICINE DEPARTMENT [address] [place] [address] Pauly Perales MD [address] [place] [address] AWV documented as of this encounter Visit Diagnoses Not on filedocumented in this encounter Care Teams Product Safety Technical Assistant Relationship Specialty Start Date End Date Rajeev Warren MD [address] [facility] [address] [place] [address] PCP - General 08/28/12 12/31/23 Pauly Perales MD [address] [place] [address] PCP - General Internal Medicine 01/01/24 Joseph Wright MD [address] [place] [address] [phone] General Surgery 03/28/[address] [place] [address] Health Education 03/18/24 documented as of this encounter
--- OUTSIDE RECORDS SUMMARY | 2024-09-28 11:18 | XMS_ITS | Encounter Summary ---
Author Organization [facility] Address [address] [place] [address] Care Team Providers Care Supervisor Hardboard Name Role Phone Rajeev Warren MD Primary Care Provider [phone] Joseph Wright MD Unavailable [phone] Pauly Perales MD Primary Care Provider [phone] Unavailable Unavaila ble Source Comments You are receiving this document because a patient has been referred to you or your facility after avisit at [facility]. The attached Continuity of Care Document (CCD) was sent in order to comply to federal meaningful use standards. The information has been automatically generated from our EHR ([employer]). If you require additional medical records beyond what is included in this CCD, please contactour Release of Information department at [facility] Reason for Visit * Reason Comments Medication Refill Encounter Details Date Type Department Care Team ([facility] st Contact Info) Description 05/01/2013 Refill [facility] INTERNAL MEDICINE DEPARTMENT [address] [place], [place] [phone] Rajeev Warren MD [address] [address] Social History Tobacco Use Types Packs/Day Years Used Date Smoking Tobacco: Never Alcohol Use Standard Drinks/Week Comments [...] Office Visit [facility]GY & IMMUNOLOGY DEPARTMENT [address] [place] [address] Tracey Woo MD [address] [place] [address] ofv 1y f/u Allergic rhinitis, Shot pt 10/08/2024 8:00 AM PDT Office Visit [facility] [address] [facility] [address] Ashkan Padron MD [address] [address] 3 month follow up Sinus 10/11/2024 11:15 AM PDT Clinical Support [facility]ERGY & IMMUNOLOGY DEPARTMENT [address] [place] [address] Allergy Shot 01/06/2025 8:00 AM PST Office Visit [facility] INTERNAL MEDICINE DEPARTMENT [address] [place] [address] Pauly Peraels MD [address] [place] [address] AWV documented as of this encounter Visit Diagnoses Not on filedocumented in this encounter Care Teams Supervisor Hardboard Relationship Specialty Start Date End Date Rajeev Warren MD [address] [facility] [address] [place] [address] PCP - General 08/28/12 12/31/23 Pauly Perales MD [address] [place] [address] PCP - General Internal Medicine 01/01/24 Joseph Wright MD [address] [place] [address] [phone] General Surgery 03/28/[address] [place] [address] Health Education 03/18/24 documented as of this encounter
--- OUTSIDE RECORDS SUMMARY | 2024-09-28 11:18 | XMS_ITS | Encounter Summary ---
Author Organization [facility] Address [address] [place] [address] Care Team Providers Care Second Worker Name Role Phone Joseph Wright MD Unavailable Pauly Perales MD Primary Care Provider Lisette Dockery RD Unavailable Unavaila ble Source Comments You are receiving this document because a patient has been referred to you or your facility after avisit at [facility]. The attached Continuity of Care Document (CCD) was sent in order to comply to federal meaningful use standards. The information has been automatically generated from our EHR ([employer]). If you require additional medical records beyond what is included in this CCD, please contactour Release of Information department at [facility] Reason for Visit * Reason Comments Medication Refill Encounter Details Date Type Department Care Team (Late st Contact Info) Description 02/03/2024 Refill [facility] INTERNAL MEDICINE DEPARTMENT [address] [place], [place] [phone] Pauly Perales MD [address] [place], [place] [phone] Class 1 obesity without serious comorbidity with body mass index (BMI) of 30.0 to 30.9 in adult, unspecified obesity type Social History Tobacco Use Types Packs/Day Years [...] PDT Office Visit [facility]ERGY & IMMUNOLOGY DEPARTMENT [address] [place] [address] Tracey Woo MD [address] [place] [address] ofv 1y f/u Allergic rhinitis, Shot pt 10/08/2024 8:00 AM PDT Office Visit [facility] [address] [facility] [place] [address] [place] [address] [place] [address] [place] [address] 3 month follow up Sinus 10/11/2024 11:15 AM PDT Clinical Support ALLERGY & IMMUNOLOGY DEPARTMENT [address] [place] [address] Allergy Shot 01/06/2025 8:00 AM PST Office Visit [facility] INTERNAL MEDICINE DEPARTMENT [address] [place] [address] Pauly Perales MD [address] [place] [address] AWV documented as of this encounter Visit Diagnoses Diagnosis Class 1 obesity without serious comorbidity with body mass index (BMI) of 30.0 to 30.9 in adult, unspecified obesity type documented in this encounter Care Teams Second Worker Relationship Specialty Start Date End Date Pauly Perales MD [address] [place] [address] PCP - General Internal Medicine 01/01/24 Joseph Wright MD [address] [place] [address] General Surgery 03/28/[address] [place] [address] Health Education 03/18/24 documented as of this encounter
--- OUTSIDE RECORDS SUMMARY | 2024-09-28 11:18 | XMS_ITS | Encounter Summary ---
Author Organization [facility] Address [address] [place] [address] Care Team Providers Care Auto Parts Manager Name Role Phone Rajeev Warren MD Primary Care Provider [phone] Joseph Wright MD Unavailable [phone] Pauly Perales MD Primary Care Provider [phone] Unavailable Unavaila ble Source Comments You are receiving this document because a patient has been referred to you or your facility after avisit at [facility]. The attached Continuity of Care Document (CCD) was sent in order to comply to federal meaningful use standards. The information has been automatically generated from our EHR ([employer]). If you require additional medical records beyond what is included in this CCD, please contactour Release of Information department at [facility] Reason for Visit * Reason Comments Medication Refill Encounter Details Date Type Department Care Team ([facility] st Contact Info) Description 06/25/2015 Refill [facility] INTERNAL MEDICINE DEPARTMENT [address] [place], [place] [phone] Rajeev Warren MD [address] [address] Social History Tobacco Use Types [...] PDT Office Visit [facility]ERGY & IMMUNOLOGY DEPARTMENT [address] [place] [address] Tracey Woo MD [address] [place] [address] ofv 1y f/u Allergic rhinitis, Shot pt 10/08/2024 8:00 AM PDT Office Visit [facility] [address] [facility] [place] [address] Ashkan Padron MD [address] [facility] [place] [address] 3 month follow up Sinus 10/11/2024 11:15 AM PDT Clinical Support ALLERGY & IMMUNOLOGY DEPARTMENT [address] [place] [address] Allergy Shot 01/06/2025 8:00 AM PST Office Visit [facility] INTERNAL MEDICINE DEPARTMENT [address] [place] [address] Pauly Perales MD [address] [place] [address] AWV documented as of this encounter Visit Diagnoses Not on filedocumented in this encounter Care Teams Auto Parts Manager Relationship Specialty Start Date End Date Rajeev Warren MD [address] [facility] [address] [place] [address] PCP - General 08/28/12 12/31/23 Pauly Perales MD [address] [place] [address] PCP - General Internal Medicine 01/01/24 Joseph Wright MD [address] [place] [address] [phone] General Surgery 03/28/[address] [place] [address] Health Education 03/18/24 documented as of this encounter
--- OUTSIDE RECORDS SUMMARY | 2024-09-28 11:18 | XMS_ITS | Encounter Summary ---
Author Organization [facility] Address [address] [place] [address] Care Team Providers Care Hydraulic Press Operator Name Role Phone Joseph Wright MD Unavailable Pauly Perales MD Primary Care Provider Lisette Dockery RD Unavailable Unavaila ble Source Comments You are receiving this document because a patient has been referred to you or your facility after avisit at [facility]. The attached Continuity of Care Document (CCD) was sent in order to comply to federal meaningful use standards. The information has been automatically generated from our EHR ([email or web address]). If you require additional medical records beyond what is included in this CCD, please contactour Release of Information department at [facility] Reason for Visit * Reason Comments Medication Refill Encounter Details Date Type Department Care Team (Late st Contact Info) Description 03/18/2024 Refill [facility] INTERNAL MEDICINE DEPARTMENT [address] [place], [place] [phone] Pauly Perales MD [address] [place], [place] [phone] Class 1 obesity without serious comorbidity with [...] PDT Office Visit [facility]ERGY [facility] IMMUNOLOGY DEPARTMENT [address] [place] [address] Tracey Woo MD [address] [place] [address] ofv 1y f/u Allergic rhinitis, Shot pt 10/08/2024 8:00 AM PDT Office Visit [facility] [address] [facility] [place] [address] [place] [address] [place] [address] [place] [address] 3 month follow up Sinus 10/11/2024 11:15 AM PDT Clinical Support ALLERGY & IMMUNOLOGY DEPARTMENT [address] [place] [address] Allergy Shot 01/06/2025 8:00 AM PST Office Visit [facility] INTERNAL MEDICINE DEPARTMENT [address] [place] [address] Pauly Perales MD [address] [place] [address] AWV documented as of this encounter Visit Diagnoses Diagnosis Class 1 obesity without serious comorbidity with body mass index (BMI) of 30.0 to 30.9 in adult, unspecified obesity type documented in this encounter Care Teams Hydraulic Press Operator Relationship Specialty Start Date End Date Pauly Perales MD [address] [place] [address] PCP - General Internal Medicine 01/01/24 Joseph Wright MD [address] [place] [address] General Surgery 03/28/[address] [place] [address] Health Education 03/18/24 documented as of this encounter
--- OUTSIDE RECORDS SUMMARY | 2024-09-28 11:18 | XMS_ITS | Encounter Summary ---
Author Organization [facility] Address [address] [place] [address] Care Team Providers Care Honing Machine Operator Production Name Role Phone Rajeev Warren MD Primary Care Provider [phone] Joseph Wright MD Unavailable [phone] Pauly Perales MD Primary Care Provider [phone] Unavailable Unavaila ble Source Comments You are receiving this document because a patient has been referred to you or your facility after avisit at [facility]. The attached Continuity of Care Document (CCD) was sent in order to comply to federal meaningful use standards. The information has been automatically generated from our EHR ([employer]). If you require additional medical records beyond what is included in this CCD, please contactour Release of Information department at [facility] Reason for Visit * Reason Comments Medication Refill Encounter Details Date Type Department Care Team ([facility] st Contact Info) Description 01/25/2017 [facility] [address] [place], [place] [phone] Rajeev Warren MD [address] [address] Social History Tobacco Use Types [...] PDT Office Visit [facility]ERGY & IMMUNOLOGY DEPARTMENT [address] [place] [address] Tracey Woo MD [address] [place] [address] ofv 1y f/u Allergic rhinitis, Shot pt 10/08/2024 8:00 AM PDT Office Visit [facility] [address] [place] [address] Ashkan Padron MD [address] [place] [address] 3 month follow up Sinus 10/11/2024 11:15 AM PDT Clinical Support [facility]GY & IMMUNOLOGY DEPARTMENT [address] [place] [address] Allergy Shot 01/06/2025 8:00 AM PST [facility] [address] [place] [address] Pauly Perales MD [address] [place] [address] AWV documented as of this encounter Visit Diagnoses Not on filedocumented in this encounter Care Teams Honing Machine Operator Production Relationship Specialty Start Date End Date Rajeev Warren MD [address] [facility] [address] [place] [address] PCP - General 08/28/12 12/31/23 Pauly Perales MD [address] [place] [address] PCP - General Internal Medicine 01/01/24 Joseph Wright MD [address] [place] [address] [phone] General Surgery 03/28/[address] [place] [address] Health Education 03/18/24 documented as of this encounter
--- OUTSIDE RECORDS SUMMARY | 2024-09-28 11:18 | XMS_ITS | Encounter Summary ---
Author Organization [facility] Address [address] [place] [address] Care Team Providers Care Zinc Chloride Operator Name Role Phone Rajeev Warren MD Primary Care Provider [phone] Joseph Wright MD Unavailable [phone] Pauly Perales MD Primary Care Provider [phone] Unavailable Unavaila ble Source Comments You are receiving this document because a patient has been referred to you or your facility after avisit at [facility]. The attached Continuity of Care Document (CCD) was sent in order to comply to federal meaningful use standards. The information has been automatically generated from our EHR ([employer]). If you require additional medical records beyond what is included in this CCD, please contactour Release of Information [facility] Reason for Visit * Reason Comments Medication Refill Encounter Details Date Type Department Care Team ([facility] st Contact Info) Description 02/25/2015 Refill [facility] INTERNAL MEDICINE DEPARTMENT [address] [place], [place] [phone] Rajeev Warren MD [address] [address] Social History Tobacco Use Types [...] PDT Office Visit [facility]ERGY & IMMUNOLOGY DEPARTMENT [address] [place] [address] Tracey Woo MD [address] [place] [address] ofv 1y f/u Allergic rhinitis, Shot pt 10/08/2024 8:00 AM PDT Office Visit [facility] [address] [place] [address] Ashkan Padron MD [address] [place] [address] 3 month follow up Sinus 10/11/2024 11:15 AM PDT Clinical Support [facility]ERGY & IMMUNOLOGY DEPARTMENT [address] [place] [address] Allergy Shot 01/06/2025 8:00 AM PST Office Visit [facility] INTERNAL MEDICINE DEPARTMENT [address] [place] [address] Pauly Perales MD [address] [place] [address] AWV documented as of this encounter Visit Diagnoses Not on filedocumented in this encounter Care Teams Zinc Chloride Operator Relationship Specialty Start Date End Date Rajeev Warren MD [address] [facility] [address] [place] [address] PCP - General 08/28/12 12/31/23 Pauly Perales MD [address] [place] [address] PCP - General Internal Medicine 01/01/24 Joseph Wright MD [address] [place] [address] [phone] General Surgery 03/28/[address] [place] [address] Health Education 03/18/24 documented as of this encounter
--- OUTSIDE RECORDS SUMMARY | 2024-09-28 11:18 | XMS_ITS | Clinical Summary ---
Author Organization [facility] Address [address] [place] [place] [address] Care Team Providers Care Coremaker Experimental Name Role Phone Joseph Wright MD Unavailable Pauly Perales MD Primary Care Provider [phone] Unavailable Unavaila ble Allergies No known active allergies Medications * This document contains information received from the source organization and may not represent a complete record from that organization. AIMOVIG 140 MG/ML SOAJ 07/20/19 22 Active Onabotulinumtoxin A (BOTOX IJ) Inject as [...] mouth 30 capsule 01/29/20 24 025 Active H-Mbbzekcrxnjf-Pw gae (DEPLIN 15) 15-90.314 MG CAPS Take [...] take for suicidal ideations. Is prescribed by [facility] in [place]. She feels the benefits out way the [...] vaccine [moderna] booster moderna 2nd booster moderna Encounters * This document contains information received from the source organization and may not represent a complete record from that organization. Date Type Department Care Team Description 09/13/2024 9:15 AM PDT Clinical Support [facility]ERGY & IMMUNOLOGY DEPARTMENT [address] [place] [address] Allergic rhinitis due to dust mite (Primary Dx); Allergic rhinitis due to animal (cat) (dog) hair and dander; Allergic rhinitis due to mold 09/02/2024 9:45 AM PDT Clinical Support [facility]MM[facility]OLOG[facility] DEPARTMENT [address] [place] [address] Allergic rhinitis due to dust mite (Primary Dx); Allergic rhinitis due to animal (cat) (dog) hair and dander; Allergic rhinitis due to mold 08/20/2024 Refill [facility] [address] [place] [address] Tracey Woo MD Chronic seasonal allergic rhinitis due to pollen 08/19/2024 9:00 AM PDT Clinical Support [facility]MM[facility]OLOGY DEPARTMENT [address] [place] [address] Allergic rhinitis due to dust mite (Primary Dx); Allergic rhinitis due to animal (cat) (dog) hair and dander; Allergic rhinitis due to mold 07/28/[address] [facility] [place] INTERNAL MEDICINE DEPARTMENT [address] [place] [address] Pauly Perales MD Class 1 obesity without serious comorbidity with body mass index (BMI) of 30.0 to 30.9 in adult, unspecified obesity type; Mild obstructive sleep apnea 07/16/2024 Refill [facility]MM[facility]OLOG[facility] DEPARTMENT [address] [place] [address] Tracey Woo MD Moderate persistent asthma without complication 07/14/2024 Refill [facility] [address] [place] [address] Tracey Woo MD Moderate persistent asthma without complication 07/11/2024 Refill [facility] [address] [place] [address] Tracey Woo MD 07/08/2024 9:15 AM PDT Clinical Support [facility] IMMUNOLOGY DEPARTMENT [address] [place] [address] Allergic rhinitis due to dust mite (Primary Dx); Allergic rhinitis due to animal (cat) (dog) hair and dander; Allergic rhinitis due to mold 07/05/2024 8:30 AM PDT Initial Consult [facility] OT[facility]OLOG[facility]PARTMENT [address] [facility] [address] [place] [address] Ashkan Padron MD Chronic nasopharyngitis (Primary Dx); History of migraine; Asymmetrical sensorineural hearing loss; Mild obstructive sleep apnea; History of asthma; Chronic ethmoidal sinusitis; Dizziness; Chronic nasal congestion; Laryngopharyngeal reflux; Chronic insomnia; History of bipolar disorder; Sinus pain; Dry mouth from Last 3 Months Immunizations Immunization Administration [...] 01/19/2018 Zoster (Shingrix, inactivated virus) 08/31/2020, 06/29/2020 Family History Medical History Relation Comments Cancer Father non-hogkins lymp ministerio Stroke Maternal Grandfather Osteoporosis Maternal Grandmother Diabetes Maternal Uncle Grave's Disease Maternal Uncle Thyroid disease Mother Stroke Paternal Grandmother Grave's Disease Sister Relation Status Comments Father Maternal Grandfather Maternal Grandmother Maternal Uncle Mother Paternal Grandmother Sister Social History Tobacco Use Types Packs/Day Years [...] Office Visit [facility]ERGY & IMMUNOLOGY DEPARTMENT [address] [place] [address] Tracey Woo MD [address] [place] [address] ofv 1y f/u Allergic rhinitis, Shot pt 10/08/2024 8:00 AM PDT Office Visit [facility] OTOL[facility]OLOGY DEPARTMENT [address] [place] [address] Ashkan Padron MD [address] [place] [address] 3 month follow up Sinus 10/11/2024 11:15 AM PDT Clinical Support ALLERGY & IMMUNOLOGY DEPARTMENT [address] [place] [address] Allergy Shot 01/06/2025 8:00 AM PST Office Visit [facility] [place] INTERNAL MEDICINE DEPARTMENT [address] [place] [address] Pauly Perales MD [address] [place] [address] AWV Health Maintenance Due Date Last Done Comments FOBT / FIT 12/06/1999 Sigmoidoscopy 12/06/1999 Cologuard Stool DNA test 2014 Breast Cancer Screening 06/22/2022 06/23/19 22, 06/22/2021, 03/22/2021 Medicare Annual Wellness Vis it (AWV) 08/17/2022 08/16/2021 Seasonal Flu Vaccination (3417-2634) (#1) 10/25/2024 10/24/2023, 10/27/2022, 11/30/2020, Additional history exists Cervical Cancer Screening 11/24/20252020, 12/30/2005, 12/30/2005 Colon Cancer Screening 01/29/2027 Colonoscopy 01/29/2027 01/29/2017, 01/29/2017 Zoster Vaccine (Shingrix): A dult Immunization Completed 08/31/2020, 06/29/2020 Pneumococcal Vaccination: Age 65+ Completed 022, 02/04/2018 COVID-19 Vaccine Series Completed 10/24/19 24, 12/12/2022, 01/08/2022, Additional history exists Procedures Procedure Name Priority Date/Time Associated Diagnosis [...] BLES Final Result [facility] [address] [place] [address] [facility] [address] [place] [address] * NAGA DIAG LEFT (06/22/2021 9:18 AM PDT) ASSESSMENT A1 SYSTEMS RIS RECOMMENDATION R0 DR BLACK RIS Anatomical Region Laterality Modality Breast Mammography 06/22/2021 9:18 AM PDT Narrative 06/22/2021 10:56 AM PDT PROCEDURE: DIAGNOSTIC MAMMOGRAM WITH TOMOSYNTHESIS; LEFT INDICATIONS: LEFT NAGA ADD VIEWS COMPARISON: [facility], US, US BREAST LEFT, 06/22/2021, 10:03. [facility], MG, NAGA SCREENING, 03/22/2021, 16:32. TECHNIQUE: Digital breast [...] 16:32. TECHNIQUE:Digital breast tomosynthesis was performed with fycnangafwayb7H mammograms. BREAST COMPOSITION: FINDINGS: Additional mammographic and [...] at 10:56 copy to: Rajeev Warren MD IMG MAMMOGRAPHY ORDERABLES Final Result * PAP SMEAR (11/24/2020) PAP normal [facility] Comment:[employer] [facility] in [place] she d oes not want to give her name Historical Provider HEALTH MAINTENANCE Final Result [facility] [address] [place] [address], [facility] [phone] * COLONOSCOPY (01/29/2017 1:52 PM PST) 01/29/2017 1:5 2 PM PST Narrative [facility] - MEDICITY [...] Colonoscopy recommended in 10 years. Procedure Codes: [91551]Colonoscopy Version 1, electronically signed by Dr. YANICK NY M.D. on 01/29/2017 at 01:52 PM. Procedure Note AltafYanick Humhprey MD - 01/29/2017 Indications: Iron deficiency anemia [...] Colonoscopy recommended in 10 years. Procedure Codes: [70715]Colonoscopy Version 1, electronically signed by Dr. YANICK NY M.D. on 01/29/2017 at 01:52 PM. Yanick Solitario MD GI PROCEDURE ORDERABLES Final Result [facility] - MEDICITY from Last 3 Months or Most Recently Relevant to Health Maintenance Insurance MEDICARE GENERIC COMMERCIAL Care Teams Coremaker Experimental Relationship Specialty Start Date End Date Pauly Perales MD [address] [place] [address] PCP - General Internal Medicine 01/01/24 Joseph rWight MD [address] [place] [address] General Surgery 03/28/[address] [place] [address] Health Education 03/18/24
--- OUTSIDE RECORDS SUMMARY | 2024-09-28 11:18 | XMS_ITS | Encounter Summary ---
Author Organization [facility] Address [address] [place] [address] Care Team Providers Care Nutrition Associate Name Role Phone Joseph Wright MD Unavailable Pauly Perales MD Primary Care Provider Lisette Dockery RD Unavailable Unavaila ble Source Comments You are receiving this document because a patient has been referred to you or your facility after avisit at [facility]. The attached Continuity of Care Document (CCD) was sent in order to comply to federal meaningful use standards. The information has been automatically generated from our EHR ([employer]). If you require additional medical records beyond what is included in this CCD, please contactour Release of Information department at [facility] Reason for Visit * Reason Comments Medication Refill Encounter Details Date Type Department Care Team (Late st Contact Info) Description 03/01/2024 Refill [facility] INTERNAL MEDICINE DEPARTMENT [address] [place], [place] [phone] Pauly Perales MD [address] [employer] [phone] Class 1 obesity without serious comorbidity with [...] Office Visit ALLERGY & IMMUNOLOGY DEPARTMENT [address] [place] [address] Tracey Woo MD [address] [place] [address] ofv 1y f/u Allergic rhinitis, Shot pt 10/08/2024 8:00 AM PDT Office Visit [facility] [address] [place] [address] [place] [address] [place] [address] [place] [address] 3 month follow up Sinus 10/11/2024 11:15 AM PDT Clinical Support ALLERGY & IMMUNOLOGY DEPARTMENT [address] [place] [address] Allergy Shot 01/06/2025 8:00 AM PST Office Visit [facility] INTERNAL MEDICINE DEPARTMENT [address] [place] [address] Pauly Perales MD [address] [place] [address] AWV documented as of this encounter Visit Diagnoses Diagnosis Class 1 obesity without serious comorbidity with body mass index (BMI) of 30.0 to 30.9 in adult, unspecified obesity type documented in this encounter Care Teams Nutrition Associate Relationship Specialty Start Date End Date Pauly Perales MD [address] [place] [address] PCP - General Internal Medicine 01/01/24 Joseph Wright MD [address] [place] [address] General Surgery 03/28/[address] [place] [address] Health Education 03/18/24 documented as of this encounter
[2024-09-30 15:09] LABS: ANA by IFA Rfx Titer/Pattern Positive (.); ANA by IFA Rfx YES YES
== END 2024-09-28 10:36 | disposition home or self-care (01) ==
PROVIDERS: PCP Family Medicine; Visit Provider Family Medicine
DX: R21 Rash and other nonspecific skin eruption (principal)
CPT/HCPCS: 36415; 85025; 85652; 86038; 86364